=== PATIENT | female | born 1985 | race Caucasian/White ===

== ENCOUNTER 2020-12-05 07:14 | Outpatient (CLI) | payer OTHER, SELFPAY ==
[2020-12-05 08:01] LABS: Basophils Absolute Auto 0.1 K/mm3 (0.0-0.1); Basophils Percent Auto 0.5 % (0.2-1.2); Eosinophils Absolute Auto 0.2 K/mm3 (0-0.3); Eosinophils Percent Auto 1.5 % (0-4.4); Hematocrit 38.5 % (37.0-47.0); Hemoglobin 13.1 g/dL (12.0-15.0); Immature Granulocyte Absolute 0.06 K/mm3 (0.00-0.031); Immature Granulocyte Percent A 0.6 % (0-0.5); Lymphocytes Absolute Auto 2.73 K/mm3 (0.9-3.2); Lymphocytes Percent Auto 25.8 % (18.3-44.2); Mean Corpuscular Hemoglobin 29.3 pg (26-34); Mean Corpuscular Volume 86.1 fl (80-100); Mean Platelet Volume 11.1 fl (7.4-10.4); Monocytes Absolute Auto 0.6 K/mm3 (0.1-0.6); Monocytes Percent Auto 5.8 % (2.6-8.5); Neutrophils Percent Auto 65.8 % (45.5-73.1); Platelet Count Result 339 k/mm3 (150-375); Red Blood Count 4.47 M/mm3 (4.2-5.4); Red Cell Distribution Width 13.2 % (11.5-14.5); White Blood Count 10.6 K/mm3 (4.5-10.0)
[2020-12-05 08:31] LABS: Alanine Aminotransferase 11 U/L (4-35); Alkaline Phosphatase 89 U/L (38-126); Anion Gap 8 mmol/L (8-16); Aspartate Amino Transferase 20 U/L (14-36); Bilirubin,Total 0.3 mg/dL (0.2-1.3); Blood Urea Nitrogen 10 mg/dL (7-17); Calcium 8.7 mg/dL (8.4-10.2); Carbon Dioxide 25 mmol/L (22-30); Chloride 106 mmol/L (98-107); Cholesterol 157 mg/dL (0-200); Estimated Glomerular Filt Rate > 60; Glucose 89 mg/dL (65-105); HDL Direct 45 mg/dL; Potassium 3.9 mmol/L (3.4-5.0); Sodium 139 mmol/L (137-145); Triglycerides 77 mg/dL (<150)
[2020-12-05 08:41] LABS: LDL Cholesterol Direct 98 mg/dL
== END 2020-12-05 07:15 | disposition home or self-care (01) ==
PROVIDERS: PCP Family Medicine; Visit Provider Family Medicine
DX: F41.1 Generalized anxiety disorder (principal); I10 Essential (primary) hypertension; Z79.899 Other long term (current) drug therapy; R60.9 Edema, unspecified
CPT/HCPCS: 36415; 80053; 80061; 84439; 84443; 85025

== ENCOUNTER 2021-09-23 10:00 | Emergency (ER) | payer OTHER, SELFPAY ==
[2021-09-23 10:13] VITALS: BP 143/79; PULSE 94; RESP 18; TEMP 36.6; O2SAT 100
--- NOTE | 2021-09-23 10:20 | ED.EAR ---
HPI - Ear Problem General Chief complaint: Ear Stated complaint: not feeling well Time Seen by Provider: 09/23/21 10:15 Source: patient Limitations: no limitations History of Present Illness HPI Narrative: Luana Estrada is a 36 yo female with a PMH of hypertension who comes with complaints of right ear pain and eustachian tube discomfort with swallowing. 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 EYES: Denies visual changes, redness, discharge. ENT: Denies rhinorrhea, congestion, sore throat, right otalgia. CARDIOVASCULAR: Denies chest pain, palpitations, edema. RESPIRATORY: Denies dyspnea, wheezing, cough GASTROINTESTINAL: Denies abdominal pain, nausea, vomiting, diarrhea. GENITOURINARY: Denies dysuria, hematuria, abnormal discharge SKIN: Denies rash or itching. NEUROLOGIC: Denies numbness, or focal weakness. PSYCHIATRIC: Denies anxiety or depression. PMFSH Past Medical History Medical History Benign essential HTN Family History Family History Father Hypertension Family history of cardiovascular disease Family history of chronic obstructive pulmonary disease Family history of coronary artery disease Mother Hypertension Grandparent Family history of malignant neoplasm Carcinoma of colon Family history of lung cancer Social History Social History Smoking status: Never smoker Alcohol intake: never Comments At time of signature, I agree with nursing past medical, surgical, social and family history. There is no relevant family history pertinent to the presenting complaint. Exam Narrative: GENERAL: This is a well-nourished, well-developed patient, in mild distress. HEAD: normocephalic, atraumatic. EYES: Sclera clear/white. Vision is grossly intact. EARS: External ears normal, auditory canals clear on left and fluid behind TM on right . Hearing grossly intact. NOSE: External nose normal without nasal discharge, nares without redness, no rhinorrhea. THROAT: Mucous membranes moist, posterior pharynx mild erythema more on the right than the left and has slight cough NECK: Neck supple, non-tender CARDIOVASCULAR: Regular rate and rhythm without murmurs, gallops, or rubs. RESPIRATORY: Clear to auscultation. Breath sounds equal bilaterally. No wheezes, rales, or rhonchi. GASTROINTESTINAL: Not performed SKIN: warm, intact with no suspicious lesions or rash, good texture and turgor. NEURO: awake, alert, and oriented to person, place and time. There were no obvious focal neurologic abnormalities. Steady gait EXTREMITIES: Normal range of motion. BACK: Nontender without deformity Course Course Emergency Course: Patient here for right ear discomfort that is been going on for most of the last 2 weeks Started on polymyxin eardrops Continue Claritin Level of Care: Express Care Visit Vital Signs Vital signs: Vital Signs Temperature 97.8 F 09/23/21 10:13 Pulse Rate 94 09/23/21 10:13 Respiratory Rate 18 09/23/21 10:13 Blood Pressure 143/79 H 09/23/21 10:13 Pulse Oximetry 100 09/23/21 10:13 Temperature 97.8 F 09/23/21 10:13 Pulse Rate 94 09/23/21 10:13 Respiratory Rate 18 09/23/21 10:13 Blood Pressure 143/79 H 09/23/21 10:13 Pulse Oximetry 100 09/23/21 10:13
== END 2021-09-23 10:36 | disposition home or self-care (01) ==
PROVIDERS: Emergency Provider Nurse Practitioner; PCP Family Medicine
DX: H66.91 Otitis media, unspecified, right ear (principal); I10 Essential (primary) hypertension
CPT/HCPCS: 99213; G0463

== ENCOUNTER 2021-11-16 14:31 | Outpatient (CLI) | payer OTHER, SELFPAY ==
[2021-11-16 15:18] LABS: Hemoglobin 12.8 g/dL (12.0-15.0); Mean Corpuscular HGB Conc 32.8 g/dl (32-36); Mean Corpuscular Hemoglobin 28.4 pg (26-34); Mean Corpuscular Volume 86.5 fl (80-100); Platelet Count Result 337 k/mm3 (150-375); Red Blood Count 4.51 M/mm3 (4.2-5.4); Red Cell Distribution Width 14.1 % (11.5-14.5)
== END 2021-11-16 14:32 | disposition home or self-care (01) ==
LOC: ANHOBOP 14:34
PROVIDERS: PCP Family Medicine; Visit Provider Otolaryngology
DX: D64.9 Anemia, unspecified (principal); H93.A1 Pulsatile tinnitus, right ear; E05.90 Thyrotoxicosis, unspecified without thyrotoxic crisis or storm
CPT/HCPCS: 36415; 84443; 85027

== ENCOUNTER 2021-11-17 13:48 | Outpatient (CLI) | payer OTHER, SELFPAY ==
--- NOTE | ~2021-11-17 | CT_ITS ---
EXAMINATION: CTA brain EXAM DATE: 11/17/2021 14:30 INDICATION: H93.A1 - Pulsatile tinnitus, right ear. TECHNIQUE: Noncontrast head CT. Spiral CT angiogram cerebral arteries performed with intravenous in jection of 100 mL Omnipaque 350. Axial, coronal and sagittal images reviewed. Additional reformatted images created on dedicated 3-D workstation. The dose-length product (DLP) for this examination was 1024.46 mGy-cm. The exposure was tailored according to patient size, and iterative reconstruction (ASIR) was used as additional dose reduction technique. There is no prior study for comparison. FINDINGS: No carotid arteriosclerosis or stenosis. There is no distal carotid or vertebral basilar arterial dissection or fibromuscular dysplasia. There are no cerebral artery aneurysms. There is symm etric cerebral artery arborization. The sagittal, transverse and sigmoid sinuses enhance normally, no venous sinus thrombosis. Internal cerebral veins also enhance normally. Symmetric petrous portions of the internal carotid arteries with thin but likely intact browne along t he middle ears. Symmetric appearing internal auditory canals. Middle ears and mastoid air cells appea r well aerated. There is no acute intraparenchymal hemorrhage. No evidence of intraparenchymal brain mass lesion. N o evidence of acute infarction. There is no mass effect or midline shift. There is no obstructive hyd rocephalus suspected. There are no extra-axial collections. IMPRESSION: Unremarkable CTA brain examination. Reviewed, dictated and finalized at location A. [employer]
[2021-11-17 14:22] LABS: Estimated Glomerular Filt Rate > 60
== END 2021-11-17 13:49 | disposition home or self-care (01) ==
LOC: ANHIMG 13:50
PROVIDERS: PCP Family Medicine; Visit Provider Otolaryngology
DX: H93.A1 Pulsatile tinnitus, right ear (principal)
CPT/HCPCS: 70496; Q9967

== ENCOUNTER 2022-02-04 10:00 | Emergency (ER) | payer OTHER, SELFPAY ==
--- NOTE | 2022-02-04 10:09 | ED.URI ---
HPI - URI/Sore Throat General Chief Complaint: Upper Respiratory Infection Stated Complaint: cough,chest congestion,nasal drainage Time Seen by Provider: 02/04/22 10:09 Source: patient Mode of arrival: ambulatory Limitations: no limitations History of Present Illness HPI Narrative: Ms. Estrada is a 36-year-old female patient presenting to the clinic today with complaints of cough, chest congestion, and runny nose and 5 days. She reports her has also been sick but he has improved. She reports that the congestion is in to her upper chest and she feels like she is having a drip with some foul tasting drainage. Reports that when she does cough it is productive at times with some yellow phlegm. No history of COPD or asthma. No history of any known exposure to anybody with COVID, flu, or strep. 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 She has been taking Claritin-D and Delsym for the cough. MD elicited complaint: cough, rhinorrhea and nasal congestion Related Data Home Medications Medication Instructions Recorded Confirmed norethindrone acetate 1 mg-ethinyl 1 tablet DAILY 09/23/21 02/04/22 estradiol 20 mcg tablet (Microgestin) omeprazole 20 mg capsule,delayed 20 mg PO DAILY 02/04/22 02/04/22 release Allergies Allergy/AdvReac Type Severity Reaction Status Date / Time No Known Allergies Allergy Unknown Verified 02/04/22 10:16 Review of Systems Review of Systems: Pertinent positives per HPI. Patient denies any rash, headache, visual changes, dizziness, sore throat,shortness of breath, chest pain, palpitations, nausea, vomiting, diarrhea, constipation, abdominal pain, or any urinary issues. [facility] Past Medical History Medical History Benign essential HTN Family History Family History Father Hypertension Family history of cardiovascular disease Family history of chronic obstructive pulmonary disease Family history of coronary artery disease Mother Hypertension Grandparent Family history of malignant neoplasm Carcinoma of colon Family history of lung cancer Social History Social History Smoking status: Never smoker Alcohol intake: never Comments At the time of my signature, I reviewed and agree with the nursing past medical, surgical, social, and family history. There is no relevant family history pertinent to the patient complaint. Exam Narrative: General: Well-developed, obese, in no apparent distress Head: Normocephalic, atraumatic Eyes: Pupils equally round and reactive to light bilaterally, EOM intact, sclera and conjunctive clear, no discharge, lids normal Ears: TMs intact and clear, ear canals clear, no drainage, grossly hearing normal. Nose: Nares patent, no discharge, no inflammation, no sinus tenderness. Mouth: Oral pharynx without lesions or masses, good dentition, MMM. Postnasal drip Neck: Supple, trachea midline, no enlargement of anterior or posterior cervical nodes, no thyroid masses or goiter palpable. Cardio: Regular rate and rhythm, s1 and s2 normal, no murmur appreciated. Resp: Clear to auscultation bilaterally, no rhonchi, rales, wheezing or rubs Course Course Emergency Course: Portions of this record may have been created with voice recognition software. Level of Care: Express Care Visit Vital Signs Vital signs: Vital Signs Temperature 36.8 C 02/04/22 10:11 Pulse Rate 96 02/04/22 10:11 Respiratory Rate 18 02/04/22 10:11 Blood Pressure 141/100 H 02/04/22 10:11 Pulse Oximetry 100 02/04/22 10:11 Oxygen Delivery Room Air 02/04/22 10:11 Temperature 36.8 C 02/04/22 10:11 Pulse Rate 96 02/04/22 10:11 Respiratory Rate 18 02/04/22 10:11 Blood Pressure 141/100 H 02/04/22 10:11 Pulse
[2022-02-04 10:11] VITALS: BP 141/100; PULSE 96; RESP 18; TEMP 36.8; O2SAT 100
== END 2022-02-04 11:01 | disposition home or self-care (01) ==
PROVIDERS: Emergency Provider Nurse Practitioner Family; PCP Family Medicine
DX: J06.9 Acute upper respiratory infection, unspecified (principal); I10 Essential (primary) hypertension; Z86.16 Personal history of COVID-19
CPT/HCPCS: 87804; 99213; G0463

== ENCOUNTER 2022-03-30 09:10 | Outpatient (CLI) | payer OTHER, SELFPAY ==
[2022-03-30 10:16] LABS: Beta HCG Quantitative 130.66 mIU/ML
== END 2022-03-30 09:11 | disposition home or self-care (01) ==
PROVIDERS: PCP Family Medicine; Visit Provider Obstetrics & Gynecology
DX: N93.9 Abnormal uterine and vaginal bleeding, unspecified (principal)
CPT/HCPCS: 36415; 84702

== ENCOUNTER 2022-04-01 09:28 | Outpatient (CLI) | payer OTHER, SELFPAY ==
[2022-04-05 20:04] LABS: Progesterone 15.8 ng/mL (***)
== END 2022-04-01 09:29 | disposition home or self-care (01) ==
PROVIDERS: PCP Family Medicine; Visit Provider Obstetrics & Gynecology
DX: N92.6 Irregular menstruation, unspecified (principal)
CPT/HCPCS: 36415; 84144; 84702

== ENCOUNTER 2022-04-26 11:11 | Outpatient (CLI) | payer OTHER, SELFPAY ==
[2022-04-26 11:37] LABS: Hematocrit 39.3 % (37.0-47.0); Hemoglobin 13.1 g/dL (12.0-15.0); Mean Corpuscular HGB Conc 33.3 g/dl (32-36); Mean Corpuscular Hemoglobin 28.2 pg (26-34); Mean Corpuscular Volume 84.7 fl (80-100); Mean Platelet Volume 11.1 fl (7.4-10.4); Platelet Count Result 336 k/mm3 (150-375); Red Blood Count 4.64 M/mm3 (4.2-5.4); Red Cell Distribution Width 13.7 % (11.5-14.5); White Blood Count 10.5 K/mm3 (4.5-10.0)
[2022-04-26 11:51] LABS: INR 1.1; Prothrombin Time 13.3 Seconds (11.1-14.7)
[2022-04-26 11:52] LABS: Partial Thromboplastin Time 29.6 SECONDS (22.3-36.8)
[2022-04-26 12:28] LABS: Hepatitis B Surface Antigen Negative (Negative); Rubella IgG Antibody 10.9 IU/ML
[2022-04-26 12:34] LABS: HIV 1/2 Ab P24 Ag Result Negative (Negative)
[2022-04-27 09:07] LABS: Rapid Plasma Reagin Non-Reactive (NonReactive)
== END 2022-04-26 11:12 | disposition home or self-care (01) ==
LOC: ANHLAB 11:12
PROVIDERS: Visit Provider Obstetrics & Gynecology
DX: Z34.90 Encounter for supervision of normal pregnancy, unspecified, unspecified trimester (principal); Z3A.00 Weeks of gestation of pregnancy not specified
CPT/HCPCS: 36415; 85027; 85610; 85730; 86592; 86703; 86762; 86850; 86900; 86901; 87340; G0432

== ENCOUNTER 2022-05-18 12:33 | Outpatient (CLI) | payer OTHER, SELFPAY ==
[2022-05-18 13:42] LABS: Hematocrit 35.5 % (37.0-47.0); Hemoglobin 11.9 g/dL (12.0-15.0); Mean Corpuscular HGB Conc 33.5 g/dl (32-36); Mean Corpuscular Hemoglobin 28.5 pg (26-34); Mean Corpuscular Volume 85.1 fl (80-100); Mean Platelet Volume 11.4 fl (7.4-10.4); Platelet Count Result 288 k/mm3 (150-375); Red Blood Count 4.17 M/mm3 (4.2-5.4); Red Cell Distribution Width 14.1 % (11.5-14.5); White Blood Count 12.4 K/mm3 (4.5-10.0)
== END 2022-05-18 12:34 | disposition home or self-care (01) ==
LOC: ANHOBOP 12:35
PROVIDERS: Visit Provider Obstetrics & Gynecology
DX: O99.119 Other diseases of the blood and blood-forming organs and certain disorders involving the immune mechanism complicating pregnancy, unspecified trimester (principal); D68.59 Other primary thrombophilia; Z3A.00 Weeks of gestation of pregnancy not specified
CPT/HCPCS: 36415; 85027

== ENCOUNTER 2022-06-24 09:39 | Outpatient (CLI) | payer OTHER, SELFPAY ==
--- NOTE | ~2022-06-24 | US_ITS ---
EXAMINATION: US venous doppler [facility] DATE: 06/24/2022 10:16 INDICATION: Left lower limb pain TECHNIQUE: Grayscale ultrasound images without and with compression and Doppler ultrasound images of the bilateral lower extremity veins were obtained. COMPARISON: None. FINDINGS: The visualized portions of right common femoral vein, profunda (deep) femoral vein, femoral vein, pop liteal vein, posterior tibial veins, peroneal veins, gastrocnemius vein and greater saphenous vein ou tflow are patent. The visualized portions of left common femoral vein, profunda femoral vein, femoral vein, popliteal v ein, posterior tibial veins, peroneal veins, gastrocnemius vein and greater saphenous vein outflow ar e patent. IMPRESSION: 1. No deep venous thrombosis in either lower limb. Reviewed, dictated and finalized at location B.
== END 2022-06-24 09:40 | disposition home or self-care (01) ==
PROVIDERS: Visit Provider Obstetrics & Gynecology
DX: M79.669 Pain in unspecified lower leg (principal); Z33.1 Pregnant state, incidental
CPT/HCPCS: 93970

== ENCOUNTER 2022-09-15 11:04 | Outpatient (CLI) | payer OTHER, SELFPAY ==
[2022-09-15 12:05] LABS: Hematocrit 31.9 % (37.0-47.0); Hemoglobin 10.9 g/dL (12.0-15.0)
[2022-09-15 12:19] LABS: Glucose 1 Hour PP 50gm Dose 135 mg/dL
[2022-09-15 12:58] LABS: HIV 1/2 Ab P24 Ag Result Negative (Negative)
== END 2022-09-15 11:05 | disposition home or self-care (01) ==
LOC: ANHOBOP 11:06
PROVIDERS: Visit Provider Obstetrics & Gynecology
DX: Z34.90 Encounter for supervision of normal pregnancy, unspecified, unspecified trimester (principal); Z3A.00 Weeks of gestation of pregnancy not specified
CPT/HCPCS: 36415; 82947; 85014; 85018; 86703; G0432

== ENCOUNTER 2022-09-17 06:11 | Outpatient (CLI) | payer OTHER, SELFPAY ==
[2022-09-17 06:46] LABS: Glucose Fasting 89 mg/dL
[2022-09-17 08:00] LABS: Glucose 1 Hour 130 mg/dL
[2022-09-17 08:53] LABS: Glucose 2 Hour 116 mg/dL
[2022-09-17 09:53] LABS: Glucose 3 Hour 57 mg/dL
== END 2022-09-17 06:12 | disposition home or self-care (01) ==
LOC: ANHOBOP 06:12
PROVIDERS: Visit Provider Obstetrics & Gynecology
DX: Z34.90 Encounter for supervision of normal pregnancy, unspecified, unspecified trimester (principal); Z3A.00 Weeks of gestation of pregnancy not specified
CPT/HCPCS: 36415; 82951; 82952

== ENCOUNTER 2022-10-20 10:22 | Observation (INO) | payer OTHER, SELFPAY ==
[2022-10-20 11:36] VITALS: BP 120/85; PULSE 91
[2022-10-20] MEDS: NIFEdipine 10 MG CAPSULE PO (11:36)
[2022-10-20 11:45] VITALS: BMI 36.4
[2022-10-20 12:45] VITALS: BP 133/84; PULSE 112
--- NOTE | 2022-10-28 12:48 | PM.OBTRLD ---
OB - Triage/Final Diagnosis Visit Information Comments/Additional reasons for admission: I have assessed the risk for this patient, Luana Estrada, and determined that she would benefit from observation care. Final Diagnosis (1) contractions: Code(s): O47.00 - False labor before 37 completed weeks of gestation, unspecified trimester Status: Acute
== END 2022-10-20 13:25 | disposition home or self-care (01) ==
PROVIDERS: Admitting Provider Obstetrics & Gynecology; Visit Provider Obstetrics & Gynecology
DX: O47.03 False labor before 37 completed weeks of gestation, third trimester (principal); Z3A.32 32 weeks gestation of pregnancy
CPT/HCPCS: A9270; G0378; G0379

== ENCOUNTER 2022-11-08 15:55 | Outpatient (RCR) | payer OTHER, SELFPAY ==
[2022-10-13 09:18] VITALS: BP 134/78; PULSE 120
[2022-10-26 16:50] VITALS: BP 128/82; PULSE 113
[2022-11-01 16:25] VITALS: BP 126/76; PULSE 118
[2022-11-08 16:34] VITALS: BP 132/85; PULSE 118
== END 2022-11-26 19:54 | disposition home or self-care (01) ==
LOC: ANHOBOP 15:55
PROVIDERS: Visit Provider Obstetrics & Gynecology
DX: O09.893 Supervision of other high risk pregnancies, third trimester (principal); Z86.718 Personal history of other venous thrombosis and embolism; Z3A.31 31 weeks gestation of pregnancy; Z3A.33 33 weeks gestation of pregnancy; Z3A.34 34 weeks gestation of pregnancy; Z3A.35 35 weeks gestation of pregnancy
CPT/HCPCS: 59025

== ENCOUNTER 2022-11-14 21:32 | Observation (INO) | payer OTHER, SELFPAY ==
[2022-11-14] VITALS (8 sets, daily range): BP systolic 122–139; BP diastolic 71–99; PULSE 91–136; TEMP 36.8; BMI 36.8
--- NOTE | 2022-11-14 21:32 | PC.NURSE ---
Pt arrives to unit with c/o nausea and vomiting with diarrhea since 0500, states she had a 100.5 F temperature at home but is feeling clammy now and started feeling cramping about an hour ago. Pt denies any vaginal bleeding or leaking of fluid. Pt to change in to gown and provide urine sample.
--- NOTE | 2022-11-14 21:38 | PC.NURSE ---
Dr Vidal on phone at this time and informed that patient is here, pt had already spoken with MD. Orders to administer D5LR 1L bolus, zofran 4mg IV, run a UA, and perform SVE if pt is nadine and requests one.
[2022-11-14] MEDS: DEXTROSE 5%/LACTATED RINGERS 1,000 ML 999 ML IV CONT (22:00)
[2022-11-14] MEDS: ONDANSETRON INJ 4 MG/2 ML VIAL IV PUSH (22:08)
[2022-11-14 22:33] LABS: Appearance Urine Clear (Clear); Bilirubin Urine 1+ (Negative); Blood Urine Negative (Negative); Color Urine Yellow (Yellow); Glucose Urine UA Negative (Negative); Ketones Urine 1+ mg/dL (Negative); Leukocyte Esterase Ur 1+ LEU/UL (Negative); Nitrate Urine Negative (Negative); Protein Urine 1+ mg/dL (Negative); Specific Grav Ur >= 1.030 (1.001-1.035); Urobilinogen Urine 0.2 mg/dL (<2.0); pH Urine 5.5 (5.0-9.0)
[2022-11-14 22:47] LABS: Bacteria Urine Trace /hpf; Mucus Urine Moderate /lpf; Squamous Epithelial Cell Urine Many /hpf (Few)
[2022-11-14 22:53] LABS: Add Urine Microscopic? YES
--- NOTE | 2022-11-14 23:00 | PC.NURSE ---
Geronimo james brought to patient
--- NOTE | 2022-11-14 23:23 | PC.NURSE ---
Dr Vidal called via marine underwriter and informed of patient stating that she is feeling better, has been able to keep down luisa crackers and states she would like to go home and get some sleep. FHTs starting tachy and return to normal baseline relayed to MD along with pt not feeling contractions and pts BP results and UA results. Orders received from MD to discharge patient to home.
--- NOTE | 2022-11-14 23:25 | OBADM ---
This patient, Luana Estrada, admitted to the OB room OB Post 113 for observation. Patient/family oriented to hospital policies and general routines including ID bracelet, bed and alarms, visiting hours, pain management, procedures, bathroom and other care routines, personal items, smoking policy, room service/diet, and visiting hours. Patient/Family are encouraged to report perceived risks to care and to ask questions if they do not understand what they are told or what they should do.
--- NOTE | 2022-11-30 21:21 | PM.OBTRLD ---
OB - Triage/Final Diagnosis Visit Information Comments/Additional reasons for admission: I have assessed the risk for this patient, Luana Estrada, and determined that she would benefit from observation care. Evaluation Laboratory results: Laboratory Tests 11/14/22 22:11 Urine Color Yellow Urine Appearance Clear Urine pH 5.5 Ur Specific Rebuck >= 1.030 Urine Protein 1+ H Urine Glucose (UA) Negative Urine Ketones 1+ H Ur Blood (Man) Negative Urine Nitrate Negative Urine Bilirubin 1+ H Urine Urobilinogen 0.2 Leukocyte Esterase Rfl 1+ H Urine RBC 3-5 H Urine WBC 7-9 H Ur Squamous Epith Cells Many H Urine Bacteria Trace Urine Mucus Moderate H Final Diagnosis (1) Nausea and vomiting during : Code(s): O21.9 - Vomiting of , unspecified Status: Acute (2) Diarrhea: Code(s): R19.7 - Diarrhea, unspecified Status: Acute
== END 2022-11-14 23:37 | disposition home or self-care (01) ==
PROVIDERS: Admitting Provider Obstetrics & Gynecology; Visit Provider Obstetrics & Gynecology
DX: O21.9 Vomiting of pregnancy, unspecified (principal); O26.893 Other specified pregnancy related conditions, third trimester; R19.7 Diarrhea, unspecified; R10.9 Unspecified abdominal pain; Z3A.36 36 weeks gestation of pregnancy
CPT/HCPCS: 81001; 87086; 96374; G0378; G0379; J2405; J7121

== ENCOUNTER 2022-11-16 13:54 | Outpatient (CLI) | payer OTHER, SELFPAY ==
[2022-11-16 14:32] LABS: Basophils Percent Auto 0.2 % (0.2-1.2); Eosinophils Absolute Auto 0.3 K/mm3 (0-0.3); Eosinophils Percent Auto 2.3 % (0-4.4); Hematocrit 32.3 % (37.0-47.0); Hemoglobin 10.7 g/dL (12.0-15.0); Immature Granulocyte Absolute 0.12 K/mm3 (0.00-0.031); Immature Granulocyte Percent A 0.9 % (0-0.5); Lymphocytes Absolute Auto 2.14 K/mm3 (0.9-3.2); Lymphocytes Percent Auto 16.7 % (18.3-44.2); Mean Corpuscular HGB Conc 33.1 g/dl (32-36); Mean Corpuscular Hemoglobin 26.9 pg (26-34); Mean Corpuscular Volume 81.2 fl (80-100); Mean Platelet Volume 10.7 fl (7.4-10.4); Monocytes Absolute Auto 0.7 K/mm3 (0.1-0.6); Monocytes Percent Auto 5.7 % (2.6-8.5); Neutrophils Absolute Auto 9.5 K/mm3 (1.3-6.7); Neutrophils Percent Auto 74.2 % (45.5-73.1); Platelet Count Result 339 k/mm3 (150-375); Red Blood Count 3.98 M/mm3 (4.2-5.4); Red Cell Distribution Width 13.6 % (11.5-14.5); White Blood Count 12.8 K/mm3 (4.5-10.0)
[2022-11-17 08:01] LABS: Rapid Plasma Reagin Non-Reactive (NonReactive)
== END 2022-11-16 13:55 | disposition home or self-care (01) ==
LOC: ANHOBOP 14:07
PROVIDERS: Visit Provider Obstetrics & Gynecology
DX: Z34.93 Encounter for supervision of normal pregnancy, unspecified, third trimester (principal); Z3A.00 Weeks of gestation of pregnancy not specified
CPT/HCPCS: 36415; 85025; 86592; 86850; 86900; 86901

== ENCOUNTER 2022-11-18 10:03 | Inpatient (IN) | payer OTHER, SELFPAY ==
[2022-11-18] VITALS (34 sets, daily range): BP systolic 128–144; BP diastolic 74–100; PULSE 75–119; RESP 18; TEMP 35.4–36.7; O2SAT 94–100; BMI 36.8
--- NOTE | 2022-11-18 10:21 | LDADM ---
This patient, Luana Estrada, was admitted to Labor/Delivery/Recovery 119 on 11/18/22 at 10:03. Plans for labor, pain management and were discussed with patient. Patient/family oriented to hospital policies and general routines including ID bracelet, bed and alarms, visiting hours, pain management, procedures, bathroom and other care routines, personal items, smoking policy, room service/diet and guest tray routines, infant security routines, and visiting hours. Patient/Family are encouraged to report perceived risks to care and to ask questions if they do not understand what they are told or what they should do. See OBIX for further documentation.
--- NOTE | 2022-11-18 10:43 | WPDANESEPPF ---
Anes - Initial Pre Proc Eval Procedure: Operation Date: 11/18/22 12:00 Proposed Procedures p Repeat Section with Tubal Ligation - Cliff Vidal MD Date/Time: 11/18/22 10:43 Surgeon: Cliff Vidal MD Pre Op Diagnosis: Repeat C Section, Desires Sterilization Patient Data Age: 37 Gender: F Height: 1.68 m Weight: 103.5 kg Allergies Allergy/AdvReac Type Severity Reaction Status Date / Time No Known Allergies Allergy Unknown Verified 11/01/22 13:03 Home Medications Medication Instructions Recorded Confirmed Type omeprazole 20 mg capsule,delayed 20 mg PO DAILY 02/04/22 10/20/22 History release aspirin 81 mg capsule 81 mg PO HS 10/13/22 10/20/22 History enoxaparin 40 mg/0.4 mL 40 mg subcut HS 10/13/22 10/20/22 History subcutaneous syringe nifedipine 30 mg tablet,extended 30 mg PO HS 10/13/22 10/20/22 History release 24 hr vit no.95-ferrous 1 tablet PO HS 10/13/22 10/20/22 History fumarate 28 mg-folic acid 800 mcg tablet () fluoxetine 20 mg capsule 20 mg PO DAILY 11/01/22 11/01/22 History Patient hx anesthesia problems: none Family hx anesthesia problems: none Results Review: All pre-operative results and documents have been reviewed as part of the pre-operative evaluation. [facility] Past Medical History Medical History Benign essential HTN DVT (deep venous thrombosis) Generalized anxiety disorder Family History Family History Father Hypertension Family history of cardiovascular disease Family history of chronic obstructive pulmonary disease Family history of coronary artery disease Mother Hypertension Grandparent Family history of malignant neoplasm Carcinoma of colon Family history of lung cancer Social History Social History Smoking status: Never smoker Alcohol intake: never Substance use: never Lack of Transportation: No Lack of Food: Never True Current Housing: I Have Housing Concerned About Future Housing: No Difficulty Paying Gas/Electric Bills: No Difficulty Paying for Meds: No Currently Unemployed: No Education: Associate Degree Difficulty w/ Childcare or Family Care: No Spiritual care concerns: No Anes - Eval Final PreProcedure Day of Procedure 11/18/22 10:43 Patient weight: overweight Heart: regular rate and rhythm Lungs: clear to auscultation Airway: Mallampati scale class 1 Neurological: alert and oriented Last oral intake: >/= 8 hours ASA classification: III Emergent: no Anesthetic plan: proceed Anesthesia type and monitoring: regional spinal and standard monitoring Results Review: All pre-operative results and documents have been reviewed as part of the pre-operative evaluation. Informed Consent: The patient's anesthetic plan and its attendant risks and benefits were discussed with the patient/family/POA. Questions were solicited and answers provided to the satisfaction of the patient/family/POA.
[2022-11-18] MEDS: LACTATED RINGERS 1,000 ML 125 ML IV CONT ×2 (11:05→11:28)
--- NOTE | 2022-11-18 11:18 | PM.IMHP ---
H&P: HPI History of Present Illness Date/Time: 11/18/22 11:18 Chief Complaint: Here for C section Narrative: 37 y/o at 37 weeks gestation. She has chronic hypertension with blood pressures that have become more difficult to control. She has a history of preeclampsia in a previous . She has no headaches, no epigastric or RUQ pain, and no visual field change. She has a history of DVT and has been on Lovenox - last dose was 3 days ago. She has anxiety that is stable on fluoxetine 20 mg daily. She takes Prilosec for GERD. She takes Procardia XL 30 mg daily. She has a history of prior , desiring repeat. She also would like pernanent contraception with tubal ligation. GBS pos. Review of Systems Review of Systems: All systems reviewed & are unremarkable except as noted in HPI and below PMFSH Past Medical History Medical History (Updated 11/18/22 @ 11:24 by Cliff Vidal MD) Benign essential HTN DVT (deep venous thrombosis) Generalized anxiety disorder Surgical History Surgical History (Updated 11/18/22 @ 11:24 by Cliff Vidal MD) History of delivery Family History Family History Father Hypertension Family history of cardiovascular disease Family history of chronic obstructive pulmonary disease Family history of coronary artery disease Mother Hypertension Grandparent Family history of malignant neoplasm Carcinoma of colon Family history of lung cancer Social History Social History Smoking status: Never smoker Alcohol intake: never Substance use: never Lack of Transportation: No Lack of Food: Never True Current Housing: I Have Housing Concerned About Future Housing: No Difficulty Paying Gas/Electric Bills: No Difficulty Paying for Meds: No Currently Unemployed: No Education: Associate Degree Difficulty w/ Childcare or Family Care: No Spiritual care concerns: No Meds Home Medications and Allergies Home Medications Medication Instructions Recorded Confirmed Type omeprazole 20 mg capsule,delayed 20 mg PO DAILY 02/04/22 11/18/22 History release aspirin 81 mg capsule 81 mg PO HS 10/13/22 11/18/22 History enoxaparin 40 mg/0.4 mL 40 mg subcut HS 10/13/22 11/18/22 History subcutaneous syringe nifedipine 30 mg tablet,extended 30 mg PO HS 10/13/22 11/18/22 History release 24 hr vit no.95-ferrous 1 tablet PO HS 10/13/22 11/18/22 History fumarate 28 mg-folic acid 800 mcg tablet () fluoxetine 20 mg capsule 20 mg PO DAILY 11/01/22 11/01/22 History Allergies Allergy/AdvReac Type Severity Reaction Status Date / Time No Known Allergies Allergy Unknown Verified 11/01/22 13:03 Vital Signs Vital Signs - 24 hr 11/18/22 11:07 Pulse Rate 105 H Blood Pressure 134/94 H Exam Const: Orientation/consciousness: patient oriented x3 Other: Well-developed, well-nourished female in no acute distress. Neck: Thyroid: thyroid normal Lymphatic: no lymphadenopathy noted (in neck, axilla or inguinal nodes) Resp: Effort & Inspection: normal respiratory effort Auscultation: clear to auscultation bilaterally Cardio: Rate: regular rate Rhythm: regular rhythm Heart sounds: S1 normal heart sound present and S2 normal heart sound present GI: Other: ABD: Soft, nontender, nondistended, gravid. FH 36 cm. FHR 150 bpm. No guarding or rebound tenderness. No hepatosplenomegaly. : General: Yes no CVA tenderness Other: Cervix closed, thick Back/Spine/Pelvis: Back: no CVA tenderness Skin: General skin exam: normal color and no rashes or lesions noted Neuro: General: patient oriented x3 Extrem: Other: Extremities: nontender with no edema Psych: Mental Status: mental status grossly normal Affect: normal affect Assessment and Plan Assessment and plan (1) Chronic hypertension a
--- NOTE | 2022-11-18 11:58 | WPDHPUPDATE1 ---
History and Physical Update Update Date/Time: 11/18/22 11:58 History and Physical has been reviewed, including an updated exam of the patient. There are NO changes in the patient's condition. Risks, benefits, and alternatives have been discussed and questions answered. Patient agrees to proceed with procedure.
[2022-11-18] MEDS: ceFAZolin 2 GM/D5W 50 ML 2 GM/50 ML BAG IVPB (12:02)
[2022-11-18] MEDS: KETOROLAC 30 MG/ML VIAL (*BKC) IV PUSH (12:30)
--- NOTE | 2022-11-18 13:13 | PM.OBPRVD ---
OB - Delivery Note Procedure Delivery date: 11/18/22 Procedure: Procedures Operation Date: 11/18/22 12:00 <No data on this case meets the specified criteria> Repeat low transverse delivery Bilateral tubal ligation via modified [place] technique Events: Chronic Hypertension and Positive Group B Strep (GBS) Delivery monitor: External FHT and External Uterine Route of delivery: Specimen: Yes (cord blood, segments of bilateral Fallopian tubes, placenta) Quantitative Blood Loss (ml): 370 Anesthesia type: Spinal Disposition: PACU Complications: None Narrative: The patient was taken to the operating room where she was prepared and draped in the usual sterile fashion in dorsal supine position with a leftward tilt. She received cefazolin preoperatively. Spinal anesthesia was found to be adequate. A Pfannenstiel skin incision was made along the previous scar line and was carried through to the underlying layer of the fascia. The fascia was incised in the midline and the incision was extended laterally. The fascia was dissected free of the underlying rectus muscles. The rectus muscles were in the midline. The peritoneum was identified, tented up and entered sharply. The peritoneal incision was extended superiorly and inferiorly with good visualization of the bladder. The bladder blade was placed. The vesicouterine peritoneum was identified, tented up and entered sharply. The incision was extended laterally and the bladder flap was developed. The bladder blade was replaced. The uterus was then incised sharply in a transverse fashion along the lower uterine segment. The incision was extended laterally. The 's head was delivered atraumatically to the sterile field, followed by the body. The nose and mouth were bulb suctioned. After a delay, the cord was clamped and cut. The was handed off the field. Cord blood was collected. The placenta was removed manually and was passed off the field. The uterus was exteriorized and cleared of all clots and debris. The uterine incision was reapproximated using 0 Monocryl in a running, locked fashion. A second, imbricating layer of the same suture was run. Excellent hemostasis resulted as did excellent reapproximation of the normal anatomy. The left fallopian tube was then identified by following it out to the fimbriated end. It was grasped in the midportion with a Ovidio clamp and a loop of tube was ligated with a free tie of 0 plain gut. The tubal segment was then transected and the specimen was passed off to be sent to pathology. Hemostasis was excellent. Attention was turned to the right fallopian tube which was similarly identified, ligated and transected. Once again, excellent hemostasis resulted. The uterus was returned the abdomen. The pelvis was irrigated copiously with warmed normal saline. The bladder flap was treated with Hemaderm. Rigorous hemostasis was assured. The fascial layer was reapproximated using 0 Vicryl in a running fashion. The skin was closed with a running, subcuticular stitch of 4 0 Vicryl. Dermaflex was applied externally. Sponge, lap, needle and instrument counts were correct. The patient was taken to the recovery room in stable condition. The infant went to the nursery in stable condition. I was present and scrubbed the entire procedure. Baby Date of : 11/18/22 Time of : 12:27 Weeks of gestation at delivery: 37 gender: Female Weight (pounds): 5 Weight (ounces): 13 presentation: vertex Placenta delivery description: Manual Removal and Normal Configuration Cord Vessel Description: 3 Vessels, Nuchal Cord and Delayed Cord Clamping score one minute: 9 score five minutes: 9
--- NOTE | 2022-11-18 13:19 | PM.OBDSVD ---
DS: Admitting Diagnosis Discharge Date 11/20/22 Admitting Diagnosis IUP at 37 weeks Chronic hypertension Thrombophilia Prior Desired sterility GBS colonization DS: Discharge Diagnosis Discharge Diagnosis (1) GBS (group B Streptococcus carrier), +RV culture, currently : Code(s): O99.820 - Streptococcus B carrier state complicating Status: Acute (2) Unwanted fertility: Code(s): Z30.09 - Encounter for other general counseling and advice on contraception Status: Acute (3) History of delivery: Code(s): Z98.891 - History of uterine scar from previous surgery Status: Acute (4) Chronic hypertension affecting : Code(s): O10.919 - Unspecified pre-existing hypertension complicating , unspecified trimester Status: Acute OB - DS: Summary OB Procedures : None OB Procedures Intrapartum: , Tubal ligation and GBS prophylaxis OB Procedures: : None Peripartum Data Procedures: Procedures Operation Date: 11/18/22 12:00 <No data on this case meets the specified criteria> Repeat LTCS with BTL Time Spent with Patient Time attestation: Total time spent providing and/or coordinating discharge services: DS: Data Data Completed and Pending Pending studies at discharge: Pending at discharge 11/18/22 12:43 Surgical [PTH] Routine Discharge Plan Discharge Attending physician on discharge: Cliff Vidal Consulting providers: Tarun Guadarrama ; Jenae Costa ; Filiberto Saab Discharging Clinician: Cliff Vidal Patient Disposition: Home, Self-Care Activity: may shower, may drive after 2 weeks and pelvic rest Diet: regular Discharge Instructions: Call or return if temperature above 100.4? F, increased abdominal pain, increased vaginal bleeding or any new problems. Education: Mom and Baby Guide Given to: Mother Follow-Up: Call your delivering provider's office for an appointment to be seen in: 4 Weeks Mom and baby should come to the [facility] for the follow-up appointment. Appointment Date/Time: November 22, 2022 at 1:30 pm What to expect at your follow-up visit: Blood Pressure Check & Physical Assessment Call [phone] if you are unable to keep your appointment time. BREAST CARE: * Wear a snug supportive bra. * For engorgement discomfort: Breast Feeding: * Apply warm moist washcloths * Express milk as needed to relieve engorgement * Wear loose clothing * For sore nipples: * Identify correct latch-on * Apply warm moist washcloths before and after nursing * Air dry nipples after nursing * May apply Lansinoh cream to nipples ABDOMINAL INCISION: * Allow incision to air dry * Do NOT use lotions for powders on your incision * When showering, allow soap and water to run over the incision, but do not wash incision PERINEAL CARE: * Until bleeding stops, use your kelli bottle after urinating * Change your pad frequently throughout the day * You may take sitz baths several times a day (fill your bathtub with warm water and soak for 20 minutes.) Do NOT bathe in the water * No tub baths until seen by your physician - You may shower ACTIVITY: * Rest as much as possible. * Do not exercise or lift anything heavier than your baby (such as laundry or other children.) * Avoid stairs or driving as much as possible. * Do not put anything into the vagina. No douching, tampons, or sexual activity until seen by physician. NOTIFY PHYSICIAN IF YOU HAVE ANY QUESTIONS OR IF ANY OF THE FOLLOWING SYMPTOMS OCCUR: * If your incision becomes red, swollen, or more painful than what you have experienced in the hospital. * If your vaginal bleeding becomes foul smelling. * If your vaginal bleeding becomes more heavy than a period or if your bleeding changes from pink to bright
[2022-11-18] MEDS: OXYTOCIN 30 UNITS/NS 500 ML 30 UNITS/500 ML BAG 125 UNITS IV CONT (15:06)
--- NOTE | 2022-11-18 15:35 | PC.NURSE ---
Patient transferred to post room #277 via [id number]. Support person present. Oriented to unit, room, information board, rooming in, admission packet and security measures. Patient verbalizes understanding.
[2022-11-18] MEDS: PANTOPRAZOLE 40 MG TABLET PO (18:48)
[2022-11-18] MEDS: DOCUSATE SODIUM 100 MG CAPSULE PO (18:49)
[2022-11-18] MEDS: DEXTROSE 5%/0.45% SOD CHL 1,000 ML 125 ML IV CONT (20:00)
[2022-11-18] MEDS: ENOXAPARIN 40 MG/0.4 ML SYRINGE SUB-Q (22:51)
[2022-11-18] MEDS: FLUoxetine HCL 20 MG CAPSULE PO (22:51)
[2022-11-18] MEDS: NIFEdipine 30 MG TAB.ER.24 PO (22:51)
[2022-11-19 04:19] VITALS: BP 140/89; PULSE 98; RESP 18; TEMP 36.6; O2SAT 100
[2022-11-19] MEDS: IBUPROFEN 600 MG TABLET PO ×4 (04:36→23:15)
[2022-11-19 05:09] LABS: Basophils Absolute Auto 0.1 K/mm3 (0.0-0.1); Basophils Percent Auto 0.4 % (0.2-1.2); Eosinophils Absolute Auto 0.2 K/mm3 (0-0.3); Eosinophils Percent Auto 1.5 % (0-4.4); Hematocrit 28.4 % (37.0-47.0); Hemoglobin 9.3 g/dL (12.0-15.0); Immature Granulocyte Absolute 0.08 K/mm3 (0.00-0.031); Immature Granulocyte Percent A 0.6 % (0-0.5); Lymphocytes Absolute Auto 3.01 K/mm3 (0.9-3.2); Lymphocytes Percent Auto 21.3 % (18.3-44.2); Mean Corpuscular HGB Conc 32.7 g/dl (32-36); Mean Corpuscular Hemoglobin 26.7 pg (26-34); Mean Corpuscular Volume 81.6 fl (80-100); Mean Platelet Volume 11.3 fl (7.4-10.4); Monocytes Absolute Auto 0.7 K/mm3 (0.1-0.6); Neutrophils Absolute Auto 10.1 K/mm3 (1.3-6.7); Neutrophils Percent Auto 71.2 % (45.5-73.1); Platelet Count Result 286 k/mm3 (150-375); Red Blood Count 3.48 M/mm3 (4.2-5.4); White Blood Count 14.1 K/mm3 (4.5-10.0)
--- NOTE | 2022-11-19 06:56 | PM.OBPNVD ---
OB - PN: Subj Subjective Date/time seen: 11/19/22 06:56 Patient comments: no complaints and pain well controlled baby status: doing well and nursing well OB - PN: Obj Data Labs 11/19/22 02:35 Labs: Laboratory Results - last 24 hr 11/19/22 02:35 WBC 14.1 H RBC 3.48 L Hgb 9.3 L Hct 28.4 L MCV 81.6 MCH 26.7 MCHC 32.7 RDW 14.0 Plt Count 286 MPV 11.3 H Immature Gran % (Auto) 0.6 H Neut % (Auto) 71.2 Lymph % (Auto) 21.3 Alfalfa % (Auto) 5.0 Eos % (Auto) 1.5 Baso % (Auto) 0.4 Lymph # (Auto) 3.01 Alfalfa # (Auto) 0.7 H Eos # (Auto) 0.2 Baso # (Auto) 0.1 Abs Immat Gran (auto) 0.08 H Absolute Neuts (auto) 10.1 H Absolute Nucleated RBC 0.0 Nucleated RBC % 0.0 OB - PN A/P Plan day: 1 Plan: routine care Time Spent With Patient Time: Total time spent is greater than 50% in coordination of care (as documented) at patient's floor/unit and/or counseling patient: Time with patient: less than 15 minutes Exam Const: General: cooperative, healthy appearing and comfortable Orientation/consciousness: oriented to person, oriented to place and oriented to time Resp: Effort & Inspection: normal respiratory effort GI: Inspection: normal to inspection and incision (cdi)
--- NOTE | 2022-11-19 07:00 | PC.NURSE ---
PT introductions made and plan of care discussed per post op c section, pain management, breast feeding, daily care activities. PT sole recipient of such instructions and no barriers to learning identified at this time. PT received such instructions per one to one discussion, mom baby care guide and demonstrations this shift. PT verbalized understanding.
[2022-11-19] MEDS: SIMETHICONE 80 MG TAB.CHEW PO (09:46)
[2022-11-19] MEDS: MULTIVIT/MIN/PREN/FOL AC/IRON TABLET 1 TAB PO (09:46)
[2022-11-19] MEDS: PANTOPRAZOLE 40 MG TABLET PO (09:47)
[2022-11-19] MEDS: POLYSACCHARIDE IRON COMPLEX 150 MG CAPSULE PO ×2 (09:47→16:40)
[2022-11-19] MEDS: DOCUSATE SODIUM 100 MG CAPSULE PO ×2 (09:47→16:40)
[2022-11-19 09:50] VITALS: BP 128/88; PULSE 108; RESP 18; TEMP 36.6; O2SAT 98
--- NOTE | 2022-11-19 11:49 | WPDANLDPN2 ---
Anes-Prog Note L&D Date/Time: 11/19/22 11:49 Comfortable throughout: section Neuraxial method: spinal Epidural/Spinal procedure site: clean & non-tender Neuro status: Neuro function grossly intact. Cardiovascular status: normal Respiratory status: normal Airway patency: baseline Mental status: baseline Post-Op hydration status: normal Vital Signs: Last Vital Signs Temp 36.6 C 11/19/22 04:19 Pulse 98 11/19/22 04:19 Resp 18 11/19/22 04:19 BP 140/89 11/19/22 04:19 Pulse Ox 100 11/19/22 04:19 O2 Del Method Room Air 11/18/22 23:45 Pain score (VAS): 09/20 I/O: Intake & Output 11/18/22 11/19/22 11/19/22 23:59 07:59 15:59 Intake Total 800 400 Output Total 200 600 Balance 600 -200 Post-procedural complaints: pruritis mild, no treatment Patient feedback: Patient satisfied with anesthetic care.
--- NOTE | 2022-11-19 11:50 | WPDANLDNPN2 ---
Anes-Prog Note L&D-Neuraxial Date/Time: 11/19/22 11:50 Neuraxial medications: intrathecal PF morphine Opiod-related complaints: none Patient feedback: Patient satisfied with post-operative pain management.
[2022-11-19] MEDS: ENOXAPARIN 40 MG/0.4 ML SYRINGE SUB-Q (21:01)
[2022-11-19] MEDS: NIFEdipine 30 MG TAB.ER.24 PO (21:01)
[2022-11-19] MEDS: FLUoxetine HCL 20 MG CAPSULE PO (21:01)
[2022-11-19 21:38] VITALS: BP 135/91; PULSE 69; RESP 16; TEMP 36.3; O2SAT 98
--- NOTE | 2022-11-20 06:15 | PM.OBPNVD ---
OB - PN: Subj Subjective Date/time seen: 11/20/22 06:15 Patient comments: no complaints and pain well controlled baby status: doing well and nursing well OB - PN: Obj Data Labs 11/19/22 02:35 Labs: Laboratory Results - last 24 hr 11/19/22 02:35 WBC 14.1 H RBC 3.48 L Hgb 9.3 L Hct 28.4 L MCV 81.6 MCH 26.7 MCHC 32.7 RDW 14.0 Plt Count 286 MPV 11.3 H Immature Gran % (Auto) 0.6 H Neut % (Auto) 71.2 Lymph % (Auto) 21.3 [place] % (Auto) 5.0 Eos % (Auto) 1.5 Baso % (Auto) 0.4 Lymph # (Auto) 3.01 [place] # (Auto) 0.7 H Eos # (Auto) 0.2 Baso # (Auto) 0.1 Abs Immat Gran (auto) 0.08 H Absolute Neuts (auto) 10.1 H Absolute Nucleated RBC 0.0 Nucleated RBC % 0.0 OB - PN A/P Plan day: 2 Plan: routine care, discharge home and follow up 6 weeks (4 weeks) Time Spent With Patient Time: Total time spent is greater than 50% in coordination of care (as documented) at patient's floor/unit and/or counseling patient: Time with patient: less than 15 minutes Exam Const: General: cooperative, healthy appearing and comfortable Nutritional Appearance: average body habitus Orientation/consciousness: oriented to person, oriented to place and oriented to time HENMT: Head: normal to inspection Resp: Effort & Inspection: normal respiratory effort Cardio: Rate: regular rate Rhythm: regular rhythm Heart sounds: S1 normal heart sound present and S2 normal heart sound present GI: Inspection: normal to inspection and incision (Intact) Auscultation: normal bowel sounds
[2022-11-20] MEDS: DOCUSATE SODIUM 100 MG CAPSULE PO (08:41)
[2022-11-20] MEDS: POLYSACCHARIDE IRON COMPLEX 150 MG CAPSULE PO (08:41)
[2022-11-20] MEDS: MULTIVIT/MIN/PREN/FOL AC/IRON TABLET 1 TAB PO (08:42)
[2022-11-20] MEDS: IBUPROFEN 600 MG TABLET PO (08:42)
[2022-11-20] MEDS: SIMETHICONE 80 MG TAB.CHEW PO (08:42)
[2022-11-20 08:45] VITALS: BP 133/96; PULSE 101; RESP 18; TEMP 36.4; O2SAT 100
[2022-11-22 13:48] VITALS: BP 144/94; PULSE 95; RESP 20; TEMP 37.2; O2SAT 100
== END 2022-11-20 12:10 | disposition home or self-care (01) | DRG 784 ==
LOC: ANHLDR 13:21 → ANHOB2 15:44
PROVIDERS: Admitting Provider Obstetrics & Gynecology; Visit Provider Obstetrics & Gynecology
PROC: 10D00Z1 Extraction of Products of Conception, Low, Open Approach (ICD-10-PCS; CPT 59514; principal; 2022-11-18 12:00)
DX: O34.219 Maternal care for unspecified type scar from previous cesarean delivery (principal); O10.92 Unspecified pre-existing hypertension complicating childbirth; Z30.2 Encounter for sterilization; K21.9 Gastro-esophageal reflux disease without esophagitis; F41.9 Anxiety disorder, unspecified; O99.62 Diseases of the digestive system complicating childbirth; O99.344 Other mental disorders complicating childbirth; O99.824 Streptococcus B carrier state complicating childbirth; Z3A.37 37 weeks gestation of pregnancy; Z37.0 Single live birth; Z86.718 Personal history of other venous thrombosis and embolism; Z79.01 Long term (current) use of anticoagulants
CPT/HCPCS: 36415; 85025; 88302; 88307; A9270; J0131; J0690; J1650; J1885; J2274; J2405; J2590; J7120

== ENCOUNTER 2022-11-24 08:04 | Outpatient (CLI) | payer OTHER, SELFPAY ==
[2022-11-24] VITALS (19 sets, daily range): BP systolic 133–154; BP diastolic 90–101; PULSE 87–114; RESP 18; TEMP 36.8; O2SAT 94–98; BMI 34.7
[2022-11-24 08:54] LABS: Basophils Absolute Auto 0.1 K/mm3 (0.0-0.1); Basophils Percent Auto 0.6 % (0.2-1.2); Eosinophils Absolute Auto 0.5 K/mm3 (0-0.3); Eosinophils Percent Auto 4.6 % (0-4.4); Hematocrit 31.5 % (37.0-47.0); Hemoglobin 10.2 g/dL (12.0-15.0); Immature Granulocyte Absolute 0.07 K/mm3 (0.00-0.031); Immature Granulocyte Percent A 0.7 % (0-0.5); Lymphocytes Percent Auto 24.5 % (18.3-44.2); Mean Corpuscular HGB Conc 32.4 g/dl (32-36); Mean Corpuscular Volume 80.4 fl (80-100); Mean Platelet Volume 10.5 fl (7.4-10.4); Monocytes Absolute Auto 0.5 K/mm3 (0.1-0.6); Monocytes Percent Auto 5.2 % (2.6-8.5); Neutrophils Absolute Auto 6.3 K/mm3 (1.3-6.7); Neutrophils Percent Auto 64.4 % (45.5-73.1); Platelet Count Result 321 k/mm3 (150-375); Red Blood Count 3.92 M/mm3 (4.2-5.4); Red Cell Distribution Width 14.1 % (11.5-14.5); White Blood Count 9.8 K/mm3 (4.5-10.0)
[2022-11-24 09:04] LABS: Alanine Aminotransferase 23 U/L (6-35); Albumin Level 3.8 g/dL (3.5-5.1); Alkaline Phosphatase 107 U/L (38-126); Anion Gap 3 mmol/L (8-16); Aspartate Amino Transferase 28 U/L (14-36); Bilirubin,Total 0.5 mg/dL (0.2-1.3); Blood Urea Nitrogen 13 mg/dL (7-17); Calcium 8.1 mg/dL (8.4-10.2); Carbon Dioxide 24 mmol/L (22-30); Chloride 108 mmol/L (98-107); Estimated CRCL calculation 114 ml/min; Estimated Glomerular Filt Rate > 60; Glucose 84 mg/dL (65-110); Potassium 3.6 mmol/L (3.4-5.0); Sodium 135 mmol/L (137-145); Uric Acid 4.3 mg/dL (2.5-7.5)
--- NOTE | 2022-11-24 09:29 | PC.NURSE ---
Dr. Kayden Grigsby returned page and informed of BP's and lab results. Pt denies headache, visual disturbance, epigastric/RUQ pain. No edema and normal DTR's. Pt had her Procardia 30 XL last night. Orders received.
[2022-11-24] MEDS: NIFEdipine 30 MG TAB.ER.24 PO (09:41)
== END 2022-11-24 10:32 | disposition home or self-care (01) ==
LOC: ANHOBOP 08:06 → ANHOBPP 08:07
PROVIDERS: Obstetrics & Gynecology; Visit Provider Obstetrics & Gynecology
DX: O16.5 Unspecified maternal hypertension, complicating the puerperium (principal)
CPT/HCPCS: 36415; 80053; 84550; 85025; 99199; A9270

== ENCOUNTER 2023-02-23 19:39 | Emergency (ER) | payer OTHER, SELFPAY ==
--- NOTE | 2023-02-23 19:46 | ED.GENADULT ---
HPI - General Adult General Chief complaint: Upper Respiratory Infection Stated complaint: cough,sorethroat Source: patient and RN notes reviewed History of Present Illness HPI narrative: 37 yo F presents to urgent care with complaints of a fever that started today. Pt staes she woke up this morning with a scratchy throat and today spiked a fever while at work. Pt states her temp was 102.9 F. Pt denies any sore throat and just states her throat itches. Pt states she has had a slight cough today as well. Pt denies any congestion, ear pain, chest pain, vomiting, or diarrhea. Denies any dysuria. Pt took an antipyretic [employer]MENT[employer] SERVICES TECH. Related Data Home Medications Medication Instructions Recorded Confirmed omeprazole 20 mg capsule,delayed 20 mg PO DAILY 02/04/22 02/23/23 release Allergies Allergy/AdvReac Type Severity Reaction Status Date / Time No Known Allergies Allergy Unknown Verified 02/23/23 19:49 Review of Systems Review of Systems: Pertinent positives and pertinent negatives per HPI. [facility] Past Medical History Medical History (Updated 02/23/23 @ 20:05 by Darlene Camejo APRN) Benign essential HTN DVT (deep venous thrombosis) Generalized anxiety disorder Surgical History Surgical History (Updated 11/18/22 @ 11:24 by Cliff Vidal MD) History of delivery Family History Family History Father Hypertension Family history of cardiovascular disease Family history of chronic obstructive pulmonary disease Family history of coronary artery disease Mother Hypertension Grandparent Family history of malignant neoplasm Carcinoma of colon Family history of lung cancer Social History Social History Smoking status: Never smoker Alcohol intake: never Substance use: never Lack of Transportation: No Lack of Food: Never True Current Housing: I Have Housing Concerned About Future Housing: No Difficulty Paying Gas/Electric Bills: No Difficulty Paying for Meds: No Currently Unemployed: No Education: Associate Degree Difficulty w/ Childcare or Family Care: No Spiritual care concerns: No Comments At the time of my signature, I reviewed and agree with the nursing past medical, surgical, social, and family history. There is no relevant family history pertinent to the patient complaint. Exam Narrative: GENERAL: This is a well-nourished, well-developed patient, in no apparent distress. HEAD: normocephalic, atraumatic. EYES: Sclera clear/white. Vision is grossly intact. EARS: External ears normal, auditory canals clear and without drainage, TMs normal without perforation. Hearing grossly intact. NOSE: External nose normal with no obvious nasal discharge, nares without redness, no rhinorrhea. THROAT: Mucous membranes moist, posterior pharynx erythemic. No exudate noted. NECK: Neck supple, non-tender without lymphadenopathy, masses or thyromegaly. CARDIOVASCULAR: tachycardia and rhythm without murmurs, gallops, or rubs. RESPIRATORY: Clear to auscultation. Breath sounds equal bilaterally. No wheezes, rales, or rhonchi. SKIN: warm, intact with no suspicious lesions or rash, good texture and turgor. NEURO: awake, alert, and oriented to person, place and time. There were no obvious focal neurologic abnormalities. Course Course Level of Care: Express Care Visit Vital Signs Vital signs: Vital Signs Temperature 98.4 F 02/23/23 19:48 Pulse Rate 120 H 02/23/23 19:48 Respiratory Rate 18 02/23/23 19:48 Blood Pressure 139/95 H 02/23/23 19:48 Pulse Oximetry 99 02/23/23 19:48 Oxygen Delivery Room Air 02/23/23 19:48 Temperature 98.4 F 02/23/23 19:48 Pulse Rate 120 H 02/23/23 19:48 Respiratory Rate 18 02/23/23 19:48 Blood Pressure 139/95 H 02/23/23 19:48 Pulse Oximetry 99 02/23/23 19:48 Oxygen Delivery Room Air 02/23/23
[2023-02-23 19:48] VITALS: BP 139/95; PULSE 120; RESP 18; TEMP 36.9; O2SAT 99
== END 2023-02-23 20:07 | disposition home or self-care (01) ==
PROVIDERS: Emergency Provider Nurse Practitioner Family
DX: B34.9 Viral infection, unspecified (principal); I10 Essential (primary) hypertension; Z86.718 Personal history of other venous thrombosis and embolism
CPT/HCPCS: 87081; 87880; 99213; G0463

== ENCOUNTER 2023-03-03 08:36 | Emergency (ER) | payer OTHER, SELFPAY ==
[2023-03-03 09:14] VITALS: BP 148/102; PULSE 103; RESP 18; TEMP 36.9; O2SAT 100
[2023-03-03 09:16] VITALS: BP 148/102; PULSE 103; RESP 18; TEMP 36.9; O2SAT 100
--- NOTE | 2023-03-03 09:21 | ED.URI ---
HPI - URI/Sore Throat General Chief Complaint: Upper Respiratory Infection Stated Complaint: sorethroat,bilateral ear pain Time Seen by Provider: 03/03/23 09:15 Source: patient Mode of arrival: ambulatory Limitations: no limitations History of Present Illness HPI Narrative: 37-year-old female presents with complaint of sinus congestion, sinus pressure, postnasal drainage, sore throat for the past 10 days. Reports intermittent exudates to tonsils. Afebrile. Taking Flonase to treat symptoms. States she does not want take any other dxjm-pat-ooxodrt medications due to . Denies chest pain and shortness of breath. All systems reviewed and negative except as noted above. Related Data Home Medications Medication Instructions Recorded Confirmed omeprazole 20 mg capsule,delayed 20 mg PO DAILY 02/04/22 03/03/23 release Allergies Allergy/AdvReac Type Severity Reaction Status Date / Time No Known Allergies Allergy Unknown Verified 03/03/23 09:15 Review of Systems Review of Systems: CONSTITUTIONAL: Denies fever, chills, or sweats. Reports fatigue. EYES: Denies visual changes, redness, or discharge. ENT: Reports rhinorrhea, congestion, sore throat, sinus pressure and bilateral ear pressure. CARDIOVASCULAR: Denies chest pain, palpitations, or edema. RESPIRATORY: Denies cough or dyspnea. GASTROINTESTINAL: Denies abdominal pain, nausea, vomiting, or diarrhea. GENITOURINARY: Denies dysuria or hematuria. SKIN: Denies rash or itching. MUSCULOSKELETAL: Denies back pain, joint pain, or myalgia. NEUROLOGIC: Reports headache. Denies numbness, or weakness. PSYCHIATRIC: Denies anxiety or depression. All other systems reviewed are negative, except as documented in HPI. [facility] Past Medical History Medical History (Updated 03/03/23 @ 09:31 by Christina Platt NP) Benign essential HTN DVT (deep venous thrombosis) Generalized anxiety disorder Surgical History Surgical History (Updated 11/18/22 @ 11:24 by Cliff Vidal MD) History of delivery Family History Family History Father Hypertension Family history of cardiovascular disease Family history of chronic obstructive pulmonary disease Family history of coronary artery disease Mother Hypertension Grandparent Family history of malignant neoplasm Carcinoma of colon Family history of lung cancer Social History Social History Smoking status: Never smoker Alcohol intake: never Substance use: never Lack of Transportation: No Lack of Food: Never True Current Housing: I Have Housing Concerned About Future Housing: No Difficulty Paying Gas/Electric Bills: No Difficulty Paying for Meds: No Currently Unemployed: No Education: Associate Degree Difficulty w/ Childcare or Family Care: No Spiritual care concerns: No Comments At time of signature, agree with nursing past medical, surgical, social and family history. There is no relevant family history pertinent to the presenting complaint. Exam Narrative: GENERAL: This is a well-nourished, well-developed patient, in no apparent distress. HEAD: normocephalic, atraumatic. EYES: PERRL. Sclera clear/white. Vision is grossly intact. EARS: External ears normal, auditory canals clear and without drainage, Fluid bilateral TMs without erythema. NOSE: External nose normal with purulence nasal drainage with erythema to both nares. Bilateral maxillary sinus tenderness on palpation. THROAT: Mucous membranes moist, Mild erythema with postnasal drainage. No exudates. NECK: Neck supple, non-tender without lymphadenopathy, masses or thyromegaly. CARDIOVASCULAR: Regular rate and rhythm without murmurs, gallops, or rubs. RESPIRATORY: Clear to auscultation. Breath sounds equal bilaterally. No wheezes, rales, or rhonchi. SKIN: warm, Dry, intact with no nancy
== END 2023-03-03 09:33 | disposition home or self-care (01) ==
PROVIDERS: Emergency Provider Nurse Practitioner Family
DX: J01.90 Acute sinusitis, unspecified (principal); I10 Essential (primary) hypertension; Z86.718 Personal history of other venous thrombosis and embolism
CPT/HCPCS: 87081; 87420; 87804; 87880; 99213; G0463

== ENCOUNTER 2023-03-15 09:08 | Outpatient (CLI) | payer OTHER, SELFPAY ==
[2023-03-15 09:26] LABS: Basophils Absolute Auto 0.1 K/mm3 (0.0-0.1); Basophils Percent Auto 0.8 % (0.2-1.2); Eosinophils Absolute Auto 0.2 K/mm3 (0-0.3); Eosinophils Percent Auto 1.9 % (0-4.4); Hemoglobin 12.2 g/dL (12.0-15.0); Immature Granulocyte Absolute 0.03 K/mm3 (0.00-0.031); Immature Granulocyte Percent A 0.3 % (0-0.5); Lymphocytes Absolute Auto 2.69 K/mm3 (0.9-3.2); Lymphocytes Percent Auto 30.7 % (18.3-44.2); Mean Corpuscular HGB Conc 32.1 g/dl (32-36); Mean Corpuscular Hemoglobin 25.5 pg (26-34); Mean Corpuscular Volume 79.5 fl (80-100); Mean Platelet Volume 10.6 fl (7.4-10.4); Monocytes Absolute Auto 0.6 K/mm3 (0.1-0.6); Monocytes Percent Auto 6.9 % (2.6-8.5); Neutrophils Absolute Auto 5.2 K/mm3 (1.3-6.7); Neutrophils Percent Auto 59.4 % (45.5-73.1); Platelet Count Result 376 k/mm3 (150-375); Red Blood Count 4.78 M/mm3 (4.2-5.4); Red Cell Distribution Width 15.2 % (11.5-14.5); White Blood Count 8.8 K/mm3 (4.5-10.0)
[2023-03-15 09:34] LABS: Alanine Aminotransferase 17 U/L (6-35); Albumin Level 4.5 g/dL (3.5-5.1); Alkaline Phosphatase 149 U/L (38-126); Anion Gap 8 mmol/L (8-16); Aspartate Amino Transferase 24 U/L (14-36); Bilirubin,Total 0.5 mg/dL (0.2-1.3); Blood Urea Nitrogen 12 mg/dL (7-17); Carbon Dioxide 28 mmol/L (22-30); Chloride 105 mmol/L (98-107); Estimated Glomerular Filt Rate > 60; Glucose 91 mg/dL (65-110); Potassium 3.8 mmol/L (3.4-5.0); Sodium 141 mmol/L (137-145)
== END 2023-03-15 09:09 | disposition home or self-care (01) ==
LOC: ANHOBOP 09:10
PROVIDERS: Visit Provider Obstetrics & Gynecology
DX: R19.7 Diarrhea, unspecified (principal)
CPT/HCPCS: 36415; 80053; 84443; 85025

== ENCOUNTER 2023-10-10 10:54 | Outpatient (CLI) | payer OTHER, SELFPAY ==
[2023-10-10 14:32] LABS: Cholesterol 151 mg/dL (0-200); HDL Direct 40 mg/dL; Triglycerides 65 mg/dL (<150)
[2023-10-10 14:59] LABS: LDL Cholesterol Direct 83 mg/dL
[2023-10-10 15:00] LABS: Alanine Aminotransferase 37 U/L (6-35); Albumin Level 4.5 g/dL (3.5-5.1); Alkaline Phosphatase 127 U/L (38-126); Anion Gap 9 mmol/L (8-16); Aspartate Amino Transferase 70 U/L (14-36); Bilirubin,Total 0.7 mg/dL (0.2-1.3); Blood Urea Nitrogen 11 mg/dL (7-17); Carbon Dioxide 23 mmol/L (22-30); Chloride 107 mmol/L (98-107); Estimated Glomerular Filt Rate > 60; Glucose 88 mg/dL (65-110); Potassium 4.1 mmol/L (3.4-5.0); Sodium 139 mmol/L (137-145)
[2023-10-10 15:19] LABS: Hemoglobin A1C 5.1 % (<5.7)
== END 2023-10-10 10:55 | disposition home or self-care (01) ==
LOC: ANHGOSHLAB 10:55
PROVIDERS: PCP Emergency Medicine; Visit Provider Emergency Medicine
DX: E66.9 Obesity, unspecified (principal); I10 Essential (primary) hypertension
CPT/HCPCS: 36415; 80053; 80061; 83036

== ENCOUNTER → 2023-10-11 08:38 | Outpatient (CLI) | payer OTHER, SELFPAY ==
--- NOTE | ~2023-10-11 | US_ITS ---
Limited Abdominal Sonogram: Real-time sonographic imaging of the right upper quadrant was performed. Clinical History: Abnormal serum enzyme levels Findings: The liver appears normal with no evidence of mass lesion or bile duct dilatation. Main por kylee vein demonstrates normal direction of flow. The gallbladder is absent, compatible prior cholecyst ectomy. The common bile duct measures 5 mm. The visualized pancreas, aorta, and IVC are unremarkable . Impression: No significant abnormality seen. Status post cholecystectomy. Reviewed, dictated and finalized at location . S PROMOTION MANAGER Impression: No significant abnormality seen. Status post cholecystectomy.
== END ==
PROVIDERS: PCP Emergency Medicine; Visit Provider Emergency Medicine
DX: R74.8 Abnormal levels of other serum enzymes (principal); Z90.49 Acquired absence of other specified parts of digestive tract
CPT/HCPCS: 76705

== ENCOUNTER 2023-10-11 13:31 | Outpatient (CLI) | payer OTHER, SELFPAY ==
--- NOTE | 2023-10-11 13:44 | ECHO_ITS ---
Patient Info Name: Luana Estrada Age: 38 years : 1985 Gender: Female Ht: 66 in Wt: 215 lbs BSA: 2.17 m2 HR: 78 bpm BP: 155 / 102 mmHg Heart Rhythm: Sinus Rhythm Technical Quality: Good Exam Date: 10/11/2023 1:57 PM Exam Location: Echo Lab Patient Status: Outpatient Admit Date: 10/11/2023 Staff Ordering Physician: Santiago Mullen MD Director Of Curriculum And Instruction: Lazara Mcallister RDCS Attending Provider: Santiago Mullen MD Referring Physician: Sebas WILHELM; Exam Type: CA echo doppler color flow Study Info Indications R01.1 - Cardiac murmur, unspecified Complete two-dimensional, color flow and Doppler transthoracic echocardiogram is performed. Summary 1. Complete two-dimensional, color flow and Doppler transthoracic echocardiogram is performed. 2. Left ventricular chamber dimension is normal. 3. Left ventricular systolic function is normal, estimated at 60-65%. 4. The left ventricular diastolic function is normal. 5. E/e' 8 is minimally elevated. 6. Left atrial chamber dimension is mildly enlarged. 7. There is mild mitral valve regurgitation. 8. There is mild tricuspid valve regurgitation. 9. No pulmonary hypertension, estimated pulmonary arterial systolic pressure is 27 mmHg. Left Ventricle E/e' 8 is minimally elevated. Left ventricular chamber dimension is normal. Left ventricular systolic function is normal, estimated at 60-65%. The left ventricular diastolic function is normal. Right Ventricle Right ventricular systolic function is normal and with normal TAPSE 2.7 cm. Right ventricular chamber dimension is normal. Left Atria Left atrial chamber dimension is mildly enlarged. Right Atria Right atrial chamber dimension is normal. Aortic Valve The aortic valve is trileaflet. There is no aortic valve stenosis. There is no aortic valve regurgitation. Pulmonic Valve There is no pulmonic regurgitation. Mitral Valve There is no mitral valve stenosis. There is mild mitral valve regurgitation. Tricuspid Valve There is mild tricuspid valve regurgitation. No pulmonary hypertension, estimated pulmonary arterial systolic pressure is 27 mmHg. Pericardium/Pleural There is no pericardial effusion. Inferior Vena Cava Normal inferior vena cava with >50% collapse upon inspiration consistent with normal right atrial pressure, 5 mmHg. Aorta The aortic root size at the sinus of Valsalva is normal. Left Ventricular Outflow Tract Name Value Normal LVOT 2D LVOT Diameter 2.0 cm LVOT Doppler LVOT Peak Gradient 8 mmHg LVOT Mean Gradient 4 mmHg LVOT VTI 27 cm LVOT VTI/AV VTI Ratio 0.9 LVOT Stroke Volume 83 ml LVOT CO 6.2 l/min LVOT CI 2.8 l/min/m2 Pulmonic Valve Name Value Normal RVOT Doppler RVOT Peak Gradient 2 mmHg
== END 2023-10-11 13:32 | disposition home or self-care (01) ==
LOC: ANHCARD 13:32
PROVIDERS: PCP Emergency Medicine; Visit Provider Emergency Medicine
DX: R01.1 Cardiac murmur, unspecified (principal); I34.0 Nonrheumatic mitral (valve) insufficiency; I36.1 Nonrheumatic tricuspid (valve) insufficiency
CPT/HCPCS: 93306

== ENCOUNTER 2023-12-20 09:34 | Outpatient (CLI) | payer OTHER, SELFPAY ==
[2023-12-20 10:16] LABS: Basophils Absolute Auto 0.1 K/mm3 (0.0-0.1); Basophils Percent Auto 0.5 % (0.2-1.2); Eosinophils Absolute Auto 0.2 K/mm3 (0-0.3); Eosinophils Percent Auto 1.7 % (0-4.4); Hematocrit 39.8 % (37.0-47.0); Hemoglobin 12.7 g/dL (12.0-15.0); Immature Granulocyte Absolute 0.04 K/mm3 (0.00-0.031); Immature Granulocyte Percent A 0.4 % (0-0.5); Lymphocytes Percent Auto 26.6 % (18.3-44.2); Mean Corpuscular HGB Conc 31.9 g/dl (32-36); Mean Corpuscular Hemoglobin 27.5 pg (26-34); Mean Corpuscular Volume 86.1 fl (80-100); Mean Platelet Volume 11.1 fl (7.4-10.4); Monocytes Absolute Auto 0.7 K/mm3 (0.1-0.6); Monocytes Percent Auto 6.2 % (2.6-8.5); Neutrophils Absolute Auto 7.1 K/mm3 (1.3-6.7); Neutrophils Percent Auto 64.6 % (45.5-73.1); Platelet Count Result 319 k/mm3 (150-375); Red Blood Count 4.62 M/mm3 (4.2-5.4); Red Cell Distribution Width 14.4 % (11.5-14.5); White Blood Count 10.9 K/mm3 (4.5-10.0)
[2023-12-20 10:31] LABS: Alanine Aminotransferase 13 U/L (6-35); Albumin Level 4.4 g/dL (3.5-5.1); Alkaline Phosphatase 110 U/L (38-126); Amylase 74 U/L (30-110); Anion Gap 4 mmol/L (4-12); Aspartate Amino Transferase 19 U/L (14-36); Bilirubin,Total 0.6 mg/dL (0.2-1.3); Blood Urea Nitrogen 9 mg/dL (7-17); Calcium 8.9 mg/dL (8.4-10.2); Carbon Dioxide 27 mmol/L (22-30); Chloride 107 mmol/L (98-107); Estimated Glomerular Filt Rate > 60; Glucose 98 mg/dL (65-110); Lipase 61 U/L (23-300); Potassium 4.4 mmol/L (3.4-5.0); Sodium 138 mmol/L (137-145)
== END 2023-12-20 09:35 | disposition home or self-care (01) ==
PROVIDERS: PCP Emergency Medicine; Visit Provider Emergency Medicine
DX: R74.8 Abnormal levels of other serum enzymes (principal); Z87.19 Personal history of other diseases of the digestive system
CPT/HCPCS: 36415; 80053; 82150; 83690; 85025

== ENCOUNTER 2024-07-29 11:49 | Outpatient (CLI) | payer OTHER, SELFPAY ==
[2024-07-29 12:50] LABS: Beta HCG Quantitative < 2.39 mIU/ML
== END 2024-07-29 11:50 | disposition home or self-care (01) ==
PROVIDERS: PCP Emergency Medicine; Visit Provider Obstetrics & Gynecology
DX: N93.9 Abnormal uterine and vaginal bleeding, unspecified (principal)
CPT/HCPCS: 36415; 84702

== ENCOUNTER 2024-07-31 13:55 | Outpatient (NON) | payer OTHER, SELFPAY ==
[2024-07-31 15:16] LABS: Beta HCG Quantitative < 2.39 mIU/ML
== END 2024-07-31 13:56 | disposition home or self-care (01) ==
LOC: ANHOBOP 13:56
PROVIDERS: PCP Emergency Medicine; Visit Provider Obstetrics & Gynecology
DX: N92.6 Irregular menstruation, unspecified (principal)
CPT/HCPCS: 36415; 84702

== ENCOUNTER 2024-08-12 15:56 | Outpatient (CLI) | payer OTHER, SELFPAY ==
--- NOTE | ~2024-08-12 | US_ITS ---
EXAMINATION: US pelvic complete w TV DATE: 08/12/2024 16:31 INDICATION: Pelvic pain. TECHNIQUE: Multiple transabdominal sonographic images of the pelvis were obtained. COMPARISON: None. FINDINGS: The uterus measures 7.7 x 3.2 x 4.7 cm. There is no free fluid in the pelvis. The endometrial complex measures 8 mm in thickness. The right ovary measures 2.4 x 1.4 x 2.1 cm. The left ovary measures 2.3 x 1.3 x 2.2 cm. There is normal vascular flow in the ovaries. IMPRESSION: 1. Normal pelvis. Reviewed, dictated and finalized at location A. CE SUPPORT ASSISTANT IMPRESSION: 1. Normal pelvis.
== END 2024-08-12 15:57 | disposition home or self-care (01) ==
PROVIDERS: PCP Emergency Medicine; Visit Provider Obstetrics & Gynecology
DX: R10.2 Pelvic and perineal pain (principal)
CPT/HCPCS: 76830; 76856

== ENCOUNTER 2024-12-02 12:38 | Outpatient (CLI) | payer OTHER, SELFPAY ==
--- OUTSIDE RECORDS SUMMARY | 2024-12-02 14:16 | XMS_ITS | Clinical Summary ---
Author Organization [facility] Address [address] [place] [address] Care Team Providers Care Computer Aided Design Operator Name Role Phone Lilliana Tate MD Unavailable [phone] Louise Nguyen RN Unavailable Cortez Guy MD Unavailable [phone] Belle Moore MD Primary Care Provider [phone] Source Comments [facility],non-owned Affiliates and Associated Physician Practices is amultiple site organization consisting of ambulatory clinics and hospital sitesin [place], [place], [place] and [place]. This disclosure is being madepursuant to the Care Everywhere program and may not contain all information available regarding this patient. Last updated 18.[facility] Allergies No known active allergies Medications * Be aware that medications may not be up to date on this document. Alwaysverify current medications with the patient. Medication Sig Dispensed Refills Start Date End Date Status YFA-EKY-AW-FISH OIL PO Take 1 Tab by mouth once daily Active Syringe, Disposable, 3 ML MISC Use 1 Each 2 times daily 20 Each 02/14/2017 Active Additional Information Patient not taking.Reported on 06/28/2017 Needle, Disp, 31G X 5/16 MISC Use 1 Each 2 times daily 20 Each 02/14/2017 Active Additional Information Patient not taking.Reported on 06/28/2017 enoxaparin (LOVENOX) injectionIndicatio ns:Deep Vein Thrombosis of Lower Extremity Inject 90 mg subcutaneously every 12 hours Reasons: Deep Vein Thrombosis of Lower Extremity 60 mL 6 02/24/2017 Active Additional Information Patient not taking.Reported on 06/28/2017 B-D 3CC LUER-MECHE SYR 26GX5/8 26G X 5/8 3 ML MISC USE BID 0 02/17/2017 Active enoxaparin (LOVENOX) injection 10 05/16/2017 Active Active Problems Problem Noted Date Diagnosed Date Left leg swelling 04/28/2017 Venous insufficiency 04/28/2017 Mild preeclampsia delivered 01/25/2017 Overview (02/24/2017): 02/24/2017: BP stable on no meds. 24 hour urine protein >300mg,urine culture neg. Deep vein thrombosis (DVT) d uring , delivered, left common femoral vein 11/30/2016 Overview (02/28/2017): 02/28/2017: normal platelets 02/24/2017: discharged home on Lovenox 1mg/kg (90mg) 02/17/2017: Heparin 24,000 units BID, PTT = 33 seconds, increase to 28,000 units BID 02/16/17: Heparin 20,000 units BID, repeat PTT = 29 seconds 02/15/17: Heparin: 17,500 units BID, repeat PTT = 27 seconds 02/14/2017: aPTT baseline = 27 seconds. 01/2017: Lovenox increased to 94 units q 12 hours to maintain 1mg/kg dosing. 12/08/2016: Anti-factor Xa activity = 0.53 units (therapeutic) Noted 11/30/16. Started on Lovenox 1mg/kg q 12hours. Will maintain therapeutic levels. Switch to heparin at 36 weeks. Monitoring: peak anti-factor Xa activity 4-6 hours after dosing. Desired level is 0.6 to 1 u/ml. Factor X assay was ordered - incorrect lab for monitoring LMW heparin. Will reorder Anti-factor Xa activity. 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 Obese 06/24/2015 Dysmenorrhea 03/12/2014 Resolved Problems Problem Noted Date Diagnosed Date Resolved Date Polyhydramnios in third trimester 01/06/2017 02/24/2017 Overview (01/27/2017): 01/27/2017: MIGUEL ANGEL=24.8cm, SZD=9586q, 5#, 52%ile. 01/04/17: MIGUEL ANGEL=26cm. Repeat ultrasound in 2 weeks for EFW & MIGUEL ANGEL. YRG=1062m, 3#12oz, 64%ile Antepartum anemia in second trimester 12/05/2016 02/24/2017 Overview (01/25/2017): 01/15/17: Hgb = 12. Continue iron. 12/02/16: Hgb=9.8. Needs to start on iron. Tachycardia 12/01/2016 01/25/2017 echogenic intracardiac focus on ultrasound 10/25/2016 02/24/2017 High risk , antepartum 08/31/2016 02/24/2017 Overview (02/14/2017): 02/14/2017: GBS neg B+/I/-/-/-/- Flu shot already. Hyponatremia 07/31/2015 07/31/2015 Hypokalemia 07/31/2015 08/01/2015 Assessment & Plan (07/31/2015 11:53 AM UMBRELLA CUTTER): Low today. -Replete today with 40 IV K Assessment & Plan (07/31/2015 8:27 AM UMBRELLA CUTTER): Low today. -Replete today with 40 IV K Abdominal pain, RUQ (right upper quadrant) 06/24/2015 09/28/2016 Assessment & Plan (08/01/2015 12:26 PM UMBRELLA CUTTER): Tolerated clears last night. GI evaluated this AM. Thinks more likely related to Gallbladder disease. -GI following, appreciate recs -MRCP today, if normal will obtain HIDA Scan (has appointment scheduled from previous work-up). -pain management with PRN Tylenol (mod-severe pain) and Morphine (severe pain) -D/c fluids once tolerating advanced diet -Advance diet to full liquids (low fat) after MRCP -protonix IV and Zofran Assessment & Plan (07/31/2015 9:08 AM UMBRELLA CUTTER): Since March 2015, comes and goes, worse with fatty meals. Now radiating to epigastric and L flank. Lipase is elevated. Also on estrogen OCP, could cause pancreatitis. -CT abdomen -Consult GI -pain management with morphine -fluids -protonix IV and Zofran -may advance to clears today if tolerates, NPO this morning Tachycardia 09/28/2016 Overview (09/28/2011): was on toprol in the past Immunizations Name Administration Dates Next Due INFLUENZA VACCINE 06/17/2016,06/18/2015 TDAP (7yrs+) 01/04/2017 Family History Medical History Relation Name Comments CAD (Coronary Artery Disease) Father Cholelithiasis Father had gallbladd er surgery in his 40's Hypercholesterolemia Father Lung Cancer Maternal Grandfather Cancer - Colon Maternal Grandmother Hypertension Mother Scoliosis Mother Cancer - Colon Paternal Grandfather Diabetes Paternal Grandfather Anesthesia Reaction Neg Hx Defects Neg Hx Osteoporosis Neg Hx Relation Name Status Comments Brother 1 Alive half Brother 2 Alive half Father Alive Maternal Grandfather Maternal Grandmother Mother Alive Paternal Grandfather Sister 1 Alive half Sister 2 Alive half Social History Tobacco Use Types Packs/Day Years Used Date Smoking Tobacco: Former Cigarettes 0.5 3 1 10/12/2005 - 08/11/2009 Smokeless Tobacco: Never Tobacco Cessation:Counseling Given: Yes Alcohol Use Standard Drinks/Week Comments No 0 (1 standard drink = 0.6 oz pur e alcohol) abstained since March 2015 Sex and Gender Information Value Date Recorded Sex Assigned at Not on file Gender Identity Female 06/07/2017 11:44 AM CDT Sexual Orientation Not on file Last Filed Vital Signs Vital Sign Reading Time Taken Comments Blood Pressure 124/82 06/28/2017 10:02 AM CDT Pulse 110 06/28/2017 10:02 AM CDT Temperature 37.2 C (98.9 F) 06/28/2017 10:02 AM CDT Respiratory Rate 16 06/28/2017 10:02 AM CDT Oxygen Saturation 98% 06/28/2017 10:02 AM CDT Inhaled Oxygen Concentration - - Weight 85.3 kg (188 lb) 06/28/2017 10:02 AM CDT Height 167.6 cm (5' 6 ) 06/28/2017 10:02 AM CDT Body Mass Index 30.34 06/28/2017 10:02 AM CDT Plan of Treatment Health Maintenance Due Date Last Done Comments HEPATITIS C SCREENING 04/18/2005 HEPATITIS B VACCINE (1 of 3 - 19+ 3-dose series) 2006 PAP SMEAR 08/02/2019 08/02/2016, 01/09, 01/22/2013, Additional history exists COVID-19 VACCINE ( - 2023- season) 2024 INFLUENZA VACCINE (#1) 2024 06/17/2016, 2014 DEPRESSION SCREENING 09/11/2024 DTAP/TDAP/TD VACCINES (2 - Td or Tdap) 01/04/2027 01/04/2017 ZOSTER VACCINE (1 of 2) 2037 HIV SCREENING Completed 08/03/2016 HIB VACCINE Aged Out No longer eligi ble based on patient's age to complete this topic HPV VACCINE Aged Out No longer eligi ble based on patient's age to complete this topic MENINGOCOCCAL (Group B) VACCINE SHARED DECISION-MAKING Aged Out No longer eligible based on patient's age to complete this topic MENINGOCOCCAL GROUPS A/C/Y/W VACCINE Aged Out No longer eligible based on patient's age to complete this topic PNEUMOCOCCAL VACCINE Aged Out No long er eligible based on patient's age to complete this topic Procedures Procedure Name Priority Date/Time Associated Diagnosis Comments OBSTETRIC PANEL Routine 08/03/2016 3:17 PM UMBRELLA CUTTER examination or test, positive result PAP LB RFLX HPV ASCU Routine 08/02/2016 4:01 PM UMBRELLA CUTTER Well woman exam with routine gynecological exam from Last 3 Months or Most Recently Relevant to Health Maintenance Results * (ABNORMAL) OBSTETRIC PANEL (08/03/2016 3:17 PM UMBRELLA CUTTER) Hepatitis B Virus Surface Antigen Negative Negative [facility] ACCOUNT BILL Rubella Antibody 1.41 Immune >0.99 index [facility] ACCOUNT BILL Comment: Non-immune <0.90 Equivocal 0.90 - 0.99 Immune >0.99 ABO B [facility] ACCOUNT BILL Rh Type Positive [facility] ACCOUNT BILL Comment: Please note: Prior records for this patient's ABO / Rh type are not available for additional verification. Antibody Screen Negative Negative [facility] ACCOUNT BILL RPR Non Reactive Non Reactive [facility] ACCOUNT BILL HIV Screen 4th Generation w Reflex Non Reactive Non Reactive [facility] ACCOUNT BILL WBC 13.6(H) 3.4 - 10.8 x10E3/uL [facility] ACCOUNT BILL RBC 4.29 3.77 - 5.28 x10E6/uL [facility] ACCOUNT BILL Hemoglobin 12.6 11.1 - 15.9 g/dL [facility] ACCOUNT BILL Hematocrit 38.0 34.0 - 46.6 % [facility] ACCOUNT BILL MCV 89 79 - 97 fL [facility] ACCOUNT BILL MCH 29.4 26.6 - 33.0 pg [facility] ACCOUNT BILL MCHC 33.2 31.5 - 35.7 g/dL [facility] ACCOUNT BILL RDW 14.0 12.3 - 15.4 % [facility] ACCOUNT BILL Platelet Count 316 150 - 379 x10E3/uL [facility] ACCOUNT BILL Granulocytes % 69 % [facility] ACCOUNT BILL Lymphocytes % 25 % [facility]OUNT BILL Monocytes % 5 % [facility]OUNT BILL Eosinophils % 1 % [facility] ACCOUNT BILL Basophils % 0 % [facility] ACCOUNT BILL Immature Cells NOT NEEDED [facility] ACCOUNT BILL Comment:Ancillary determined the test is not needed Granulocytes Absolute 9.4(H) 1.4 - 7.0 x10E3/uL [facility] ACCOUNT BILL Lymphocytes Absolute 3.3(H) 0.7 - 3.1 x10E3/uL [facility] ACCOUNT BILL Monocytes Absolute 0.7 0.1 - 0.9 x10E3/uL [facility] ACCOUNT BILL Eosinophils Absolute 0.1 0.0 - 0.4 x10E3/uL [facility] ACCOUNT BILL Basophils Absolute 0.0 0.0 - 0.2 x10E3/uL [facility] ACCOUNT BILL Immature Granulocytes 0 % [facility] ACCOUNT BILL Immature Granulocytes Absolute 0.0 0.0 - 0.1 x10E3/uL [facility] ACCOUNT BILL nRBC NOT NEEDED [facility] ACCOUNT BILL Comment:Ancillary determined the test is not needed Comment Hematology NOT NEEDED [facility] ACCOUNT BILL Comment:Ancillary determined the test is not needed Blood BLOOD SPECIMEN / Unknown 08/03/2016 3:17 PM UMBRELLA CUTTER 08/03/2016 Narrative Resulting Agency Comment [facility] [address] [facility] [id number] Lilliana Tate MD LAB - CHEMISTRY ARVIND LONG [facility] ACCOUNT BILL [address] [place] [address] * PAP SMEAR LB RFLX HPV ASCU (PO REF LAB) (08/02/2016 4:01 PM UMBRELLA CUTTER) Diagnosis [facility] ACCOUNT BILL Comment:NEGATIVE FOR INTRAEP ITHELIAL LESION AND MALIGNANCY. Specimen Adequacy [facility] ACCOUNT BILL Comment: Satisfactory for evaluation. Endocervical and/or squamous metaplastic cells (endocervical component) are present. Clinician Provided ICD10 [facility] ACCOUNT BILL Comment: Z01.419 Z32.01 Performed by [facility] ACCOUNT BILL Comment:Sharri Hays, Cytot echnologist (ASCP) Comment . [facility] ACCOUNT BILL Note [facility] ACCOUNT BILL Comment: The Pap smear is a screening test designed to aid in the detection of premalignant and malignant conditions of the uterine cervix. It is not a diagnostic procedure and should not be used as the sole means of detecting cervical cancer. Both false-positive and false-negative reports do occur. . Note [facility] ACCOUNT BILL Comment: The HPV DNA reflex criteria were not met with this specimen result therefore, no HPV testing was performed. . Pathology/Cytolog y ENTIRE ENDOCERVIX / Unknown 08/02/2016 4:01 PM UMBRELLA CUTTER 08/02/2016 Narrative [facility] ACCOUNT BILL - 08/05/2016 5:08 PM UMBRELLA CUTTER Source.............Cervix;Endocervix LMP / Prev Treat...ONN=[id number] Other.............. No. of containers..01 CYTYC Thin Prep Vial Resulting Agency Comment [facility] [address] [place] [address] Arron Valdes [id number] Lilliana Tate MD LAB - PATHOLOGY/CYTO LOGY ORDERABLES [facility] ACCOUNT BILL [address] [place] [address] from Last 3 Months or Most Recently Relevant to Health Maintenance Advance Directives * Full Code (Latest Code Status on File) Date Activated Date Inactivated Comments 02/21/2017 8:16 AM 02/24/2017 4:39 PM * Full Code Date Activated Date Inactivated Comments 02/20/2017 8:18 AM 02/21/2017 8:16 AM * Full Code Date Activated Date Inactivated Comments 11/30/2016 1:53 PM 12/03/2016 9:39 PM * Full Code Date Activated Date Inactivated Comments 11/30/2016 1:20 PM 11/30/2016 1:53 PM * Full Code Date Activated Date Inactivated Comments 11/29/2016 1:13 PM 11/29/2016 5:59 PM Care Teams Computer Aided Design Operator Relationship Specialty [place] [address] [place] [address] [place] [id number] PCP - General 11/21/19 Lilliana Tate MD [address] [place] [address] Vp Rheumatology Obstetrics and Gynecology 09/28/11 Louise Nguyen, RN Filter Tip Catcher 07/31/15 Cortez Guy MD Vascular Surgery 12/23/16
--- OUTSIDE RECORDS SUMMARY | 2024-12-02 14:16 | XMS_ITS | Clinical Summary ---
Author Organization [facility] Virtual Care Address [address] [place] [phone] Phone Care Team Providers Care Vice President Global Digital Marketing Name Role Phone Emilia Alcaraz MD Primary Care Provider [phone] Allergies No known active allergies Medications metoprolol XL (TOPROL-XL) 50 mg extended release tabletIndications :hypertension Take 50 mg by mouth nightly 2 Active Microgestin 1/20, 21, 1-20 mg-mcg per tabletIndications : Contraception Take 1 tablet by mouth nightly 2 Active FLUoxetine (PROzac) 20 mg tabletIndications :Anxiety with Depression Take 20 mg by mouth daily before breakfast Active omeprazole OTC (PriLOSEC OTC) 20 mg EC tabletIndications :Treatment of Non-Bleeding Gastric Disorder Take 20 mg by mouth daily before breakfast Active acetaminophen (TYLENOL) 325 mg tablet Take 650 mg by mouth every 6 (six) hours as needed for pain Active HYDROcodone-aceta minophen (NORCO) 5-325 mg per tabletIndications :Pain Take 1 tablet by mouth every 6 (six) hours as needed for pain for up to 15 doses 15 tablet 2 Active Additional Information Patient not taking.Reported on 03/17/2022 hydrocortisone 0.5 % ointment Apply topically 2 (two) times a day Apply to right incision 30 g 1 2 Active Additional Information Patient not taking.Reported on 03/17/2022 Active Problems Problem Noted Date Diagnosed Date Pulsatile tinnitus, right ear 12/03/2021 Cerebral venous thrombosis of sigmoid sinus 11/10 Overview (12/03/2021): Added automatically from request for surgery [id number] Surgical History Surgery Date Site/Laterality Comments CHOLECYSTECTOMY 09/11/2014 - 09/10/2015 SECTION 09/11/2016 - 09/10/2017 Medical History Medical History Date Comments Hypertension DVT (deep vein thrombosis) in Motion sickness Family History Medical History Relation Name Comments Anesthesia problems Neg Hx Social History Tobacco Use Types Packs/Day Years Used Date Smoking Tobacco: Former Cigarettes Q uit: 2010 Smokeless Tobacco: Never AUDIT-C Answer Date Recorded Q1: How often do you have a drink containing alc ohol? Monthly or less 12/20/2021 Q2: How many drinks containi ng alcohol do you have on a typical day when you are drinking? 1 or 2 12/20/2021 Q3: How often do you have si x or more drinks on one occasion? 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 Gender Identity Not on file Sexual Orientation Not on file Obstetrics History Last Filed Vital Signs Vital Sign Reading Time Taken Comments Blood Pressure 162/107 12/20/2021 1:10 PM CDT Pulse 96 12/20/2021 1:10 PM CDT Temperature 36.2 C (97.2 F) 12/20/2021 12:00 PM CDT Respiratory Rate 14 12/20/2021 1:10 PM CDT Oxygen Saturation 96% 12/20/2021 1:10 PM CDT Inhaled Oxygen Concentration - - Weight 99.8 kg (220 lb) 12/14/2021 10:15 AM CDT Height 167.6 cm (5' 6 ) 12/14/2021 10:15 AM CDT Body Mass Index 35.51 12/14/2021 10:15 AM CDT Plan of Treatment Health Maintenance Due Date Last Done Comments Cervical Cancer Screening 1987 Depression Screening 1987 Hepatitis C Screening 1987 Varicella Vaccines (1 of - + 2-dose series) 2000 Hepatitis B Screening 2005 Regular Well Visit/Exam 18-64 2005 Covid-19 Vaccine (2023-2 5 season) 2024 09/18/2020, 08/29/2020 Influenza Vaccine (#1) 2024 8, 06/17/2016, 06/18/2015 DTaP/Tdap/Td Vaccine (2 - Td or Tdap) 01/04/2027 01/04/2017 HPV Vaccines Aged Out No longer eligi ble based on patient's age to complete this topic Pneumococcal vaccine <65 Aged Out No longer eligible based on patient's age to complete this topic Medical Devices Implanted Type Area Senior Center Director Device Identifier Shelf Expiration Date Model / Serial / Lot Roberto Craniomaxillofacial [id number] Directinject Cement 5cc Bone Hendesron - [id number] Implanted:Qty: 1 on 12/20/2021 by Morales East MD at [facility] Right : Ear Roberto Craniomaxillofacial [id number] 05/18/2023 [id number] / / [id number] Insurance [facility] Care Teams Vice President Global Digital Marketing Relationship Specialty Start Date End Date Emilia Alcaraz MD [address] [place] [address] PCP - General Family Medicine 08/06/18
--- OUTSIDE RECORDS SUMMARY | 2024-12-02 14:16 | XMS_ITS | Clinical Summary ---
Author Organization [facility] Address [address] [place] [address] Care Team Providers Care Director Of Assessing Name Role Phone Belle Moore MD Primary Care Provider [phone] Social History Tobacco Use Types Packs/Day Years Used Date Smoking Tobacco: Never Assessed Comments Unknown Sex and Gender Information Value Date Recorded Sex Assigned at Not on file Legal Sex Female 3:07 PM NET DEVELOPER PROGRAMMER Gender Identity Not on file Sexual Orientation Not on file Plan of Treatment Health Maintenance Due Date Last Done Comments DTAP/TDAP/TD VACCINES (1 - Tdap) 2006 HEPATITIS B VACCINES (1 of 3 - 19+ 3-dose series) 2006 PAP SMEAR 2008 CERVICAL CANCER SCREENING 2017 HPV/Cotest 2017 PAP SMEAR 2017 INFLUENZA VACCINE (#1) 2024 HPV VACCINES Aged Out No longer eligi ble based on patient's age to complete this topic PNEUMOCOCCAL VACCINE 0-49 YEARS Aged Out No longer eligible based on patient's age to complete this topic Insurance [employer] CHO[employer] Care Teams Director Of Assessing Relationship Specialty Start Date End Date Belle Moore MD PCP - General Family Practice 10/29/15
--- OUTSIDE RECORDS SUMMARY | 2024-12-02 14:16 | XMS_ITS | Referral Summary ---
Author Organization 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 Right : Ear Roberto Craniomaxillofacial [id number] 05/18/2023 [id number] / / [id number] Insurance [facility] Care Teams Is/It Project Manager Relationship Specialty Start Date End Date Emilia Alcaraz MD [address] [place] [address] PCP - General Family Medicine 08/06/18
[2024-12-02 14:18] LABS: Add Urine Microscopic? YES; Appearance Urine Cloudy (Clear); Bacteria Urine None Seen /hpf; Bilirubin Urine Negative (Negative); Blood Urine Negative (Negative); Color Urine Yellow (Yellow); Glucose Urine UA Negative (Negative); Ketones Urine Negative (Negative); Leukocyte Esterase Ur Negative LEU/UL (Negative); Nitrate Urine Negative (Negative); Non Pathogenic Casts 0-2; Protein Urine Negative (Negative); RBC Urine 0-2 /hpf (0-2); Specific Grav Ur 1.023 (1.001-1.035); Squamous Epithelial Cell Urine None Seen /hpf (Few); WBC Urine 0-5 /hpf (0-3)
== END 2024-12-02 12:39 | disposition home or self-care (01) ==
LOC: ANHOBOP 12:39
PROVIDERS: Visit Provider Obstetrics & Gynecology
DX: R39.9 Unspecified symptoms and signs involving the genitourinary system (principal)
CPT/HCPCS: 81001; 87086

== ENCOUNTER 2024-12-16 13:07 | Outpatient (CLI) | payer OTHER, SELFPAY ==
[2024-12-16 13:52] LABS: Add Urine Microscopic? YES; Appearance Urine Cloudy (Clear); Bacteria Urine 2+ /hpf; Bilirubin Urine Negative (Negative); Blood Urine Trace (Negative); Color Urine Dark Yellow (Yellow); Glucose Urine UA Negative (Negative); Ketones Urine Trace mg/dL (Negative); Leukocyte Esterase Ur 1+ LEU/UL (Negative); Mucus Urine Present /lpf; Need Manual Microscopic Reviewed; Nitrate Urine Negative (Negative); Protein Urine Trace mg/dL (Negative); Specific Grav Ur 1.027 (1.001-1.035); Squamous Epithelial Cell Urine Few /hpf (Few); Urobilinogen Urine 0.2 mg/dL (<2.0); WBC Urine 21-50 /hpf (0-3); pH Urine 5.5 (5.0-9.0)
--- OUTSIDE RECORDS SUMMARY | 2024-12-16 14:58 | XMS_ITS | Clinical Summary ---
Author Organization [facility] Address [address] [facility] [place] [address] Care Team Providers Care Automatic Toe Laster Name Role Phone Lilliana Tate MD Unavailable [phone] Louise Nguyen RN Unavailable Cortez Guy MD Unavailable [phone] Belle Moore MD Primary Care Provider [phone] Source Comments [facility],non-owned Affiliates and Associated Physician Practices is amultiple site organization consisting of ambulatory clinics and hospital sitesin [place], [place], [place] and [place]. This disclosure is being madepursuant to the Care Everywhere program and may not contain all information available regarding this patient. Last updated 18.[facility] Allergies No known active allergies Medications * Be aware that medications may not be up to date on this document. Alwaysverify current medications with the patient. Medication Sig Dispensed Refills Start Date End Date Status CJL-TSK-DB-FISH OIL PO Take 1 Tab by mouth [...] 01/06/2017 02/24/2017 Overview (01/27/2017): 01/27/2017: MIGUEL ANGEL=24.8cm, GUB=7582v, 5#, 52%ile. 01/04/17: MIGUEL ANGEL=26cm. Repeat ultrasound in 2 weeks for EFW & MIGUEL ANGEL. VVT=0852n, 3#12oz, 64%ile Antepartum anemia in second trimester 12/05/2016 02/24/2017 Overview (01/25/2017): 01/15/17: Hgb = 12. Continue iron. 12/02/16: Hgb=9.8. Needs to start on iron. Tachycardia 12/01/2016 01/25/2017 echogenic intracardiac focus on ultrasound 10/25/2016 02/24/2017 High risk , antepartum 08/31/2016 02/24/2017 Overview (02/14/2017): 02/14/2017: GBS neg B+/I/-/-/-/- Flu shot already. Hyponatremia 07/31/2015 07/31/2015 Hypokalemia 07/31/2015 08/01/2015 Assessment & Plan (07/31/2015 11:53 AM GLASS MOLD REPAIRER): Low today. -Replete today with 40 IV K Assessment & Plan (07/31/2015 8:27 AM GLASS MOLD REPAIRER): Low today. -Replete today with 40 IV K Abdominal pain, RUQ (right upper quadrant) 06/24/2015 09/28/2016 Assessment & Plan (08/01/2015 12:26 PM GLASS MOLD REPAIRER): Tolerated clears last night. GI evaluated this [...] Zofran Assessment & Plan (07/31/2015 9:08 AM GLASS MOLD REPAIRER): Since March 2015, comes and goes, worse [...] Additional history exists COVID-19 VACCINE ( - season) 2024 DEPRESSION SCREENING 09/11/2024 INFLUENZA VACCINE (Season Ended) 2025 06/17/2016, 06/18/2015 DTAP/TDAP/TD VACCINES (2 - Td or Tdap) [...] Comments OBSTETRIC PANEL Routine 08/03/2016 3:17 PM GLASS MOLD REPAIRER examination or test, positive result PAP LB RFLX HPV ASCU Routine 08/02/2016 4:01 PM GLASS MOLD REPAIRER Well woman exam with routine gynecological exam from Last 3 Months or Most Recently Relevant to Health Maintenance Results * (ABNORMAL) OBSTETRIC PANEL (08/03/2016 3:17 PM GLASS MOLD REPAIRER) Hepatitis B Virus Surface Antigen Negative Negative [...] BLOOD SPECIMEN / Unknown 08/03/2016 3:17 PM GLASS MOLD REPAIRER 08/03/2016 Narrative Resulting Agency Comment [facility] [address] [facility] [id number] Lilliana Tate MD LAB - CHEMISTRY ARVIND LONG [facility] ACCOUNT BILL [address] [place] [address] * PAP SMEAR LB RFLX HPV ASCU (PO REF LAB) (08/02/2016 4:01 PM GLASS MOLD REPAIRER) Diagnosis [facility] ACCOUNT BILL Comment:NEGATIVE FOR INTRAEP [...] ENTIRE ENDOCERVIX / Unknown 08/02/2016 4:01 PM GLASS MOLD REPAIRER 08/02/2016 Narrative [facility] ACCOUNT BILL - 08/05/2016 5:08 PM GLASS MOLD REPAIRER Source.............Cervix;Endocervix LMP / Prev Treat...ZZC=[id number] Other.............. No. of containers..01 CYTYC Thin Prep Vial Resulting Agency Comment [facility] [address] [place] [address] Arron Valdes [phone] Lilliana Tate MD LAB - PATHOLOGY/CYTO LOGY ORDERABLES [facility] ACCOUNT BILL [address] [place] [address] from Last 3 Months or Most Recently [...] 1:13 PM 11/29/2016 5:59 PM Care Teams Automatic Toe Laster Relationship Specialty [place] [address] [place] [address] [phone] PCP - General 11/21/19 Lilliana Tate MD [address] [place] [address] Green Chain Operator Obstetrics and Gynecology 09/28/11 Louise Nguyen, RN Cadd Instructor 07/31/15 Cortez Guy MD Vascular Surgery 12/23/16
--- OUTSIDE RECORDS SUMMARY | 2024-12-16 14:58 | XMS_ITS | Clinical Summary ---
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 Gender Identity Not on file Sexual Orientation [...] 5 season) 2024 09/18/2020, 08/29/2020 Influenza Vaccine (Season Ended) 2025 07/03/2018, 06/17/2016, 06/18/2015 DTaP/Tdap/Td Vaccine (2 - Td or Tdap) 01/04/2027 01/04/2017 HPV Vaccines Aged Out No longer eligi ble based on patient's age to complete this topic Pneumococcal vaccine <65 Aged Out No longer eligible based on patient's age to complete this topic Medical Devices Implanted Type Area Sales Performance Analyst Device Identifier Shelf Expiration Date Model / Serial / Lot [place] Craniomaxillofacial [id number] Directinject Cement 5cc Bone Henderson - [id number] Implanted:Qty: 1 on 12/20/2021 by Morales East MD at [facility] Right : Ear Roberto Craniomaxillofacial [id number] 05/18/2023 [id number] / / [id number] Insurance [facility] Care Teams Supervisor Abattoir Relationship Specialty Start Date End Date Emilia Alcaraz MD [address] [place] [address] PCP - General Family Medicine 08/06/18
--- OUTSIDE RECORDS SUMMARY | 2024-12-16 14:58 | XMS_ITS | Referral Summary ---
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 H[facility]/PPO Address: [address] [address] [facility] HMO/PPO Address: [place] [address] Care Teams Inverter And Clipper Relationship Specialty Start Date End Date Emilia Alcaraz MD [address] [place] [address] PCP - General Family Medicine 08/06/18
--- OUTSIDE RECORDS SUMMARY | 2024-12-16 14:58 | XMS_ITS | Clinical Summary ---
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 Gender Identity Not on file Sexual Orientation Not on file Plan of Treatment Health Maintenance Due Date Last Done Comments DTAP/TDAP/TD VACCINES (1 - Tdap) 2006 HEPATITIS B VACCINES (1 of 3 - 19+ 3-dose series) 2006 HPV/Cotest (21-29) 2008 PAP SMEAR 2008 CERVICAL CANCER SCREENING 2017 HPV/Cotest (30-65) 2017 PAP SMEAR 2017 INFLUENZA VACCINE (#1) 2024 HPV VACCINES Aged Out No longer eligi ble based on patient's age to complete this topic PNEUMOCOCCAL VACCINE 0-49 YEARS Aged Out No longer eligible based on patient's age to complete this topic Insurance EXCLUSIVE CHOICE Care Teams Fish Hatchery Manager Relationship Specialty Start Date End Date Belle Moore MD PCP - General Family Practice 10/29/15
== END 2024-12-16 13:08 | disposition home or self-care (01) ==
LOC: ANHOBOP 13:09
PROVIDERS: Visit Provider Obstetrics & Gynecology
DX: R35.0 Frequency of micturition (principal)
CPT/HCPCS: 81001; 87086

== ENCOUNTER 2025-05-02 07:58 | Outpatient (NON) | payer OTHER, SELFPAY ==
--- OUTSIDE RECORDS SUMMARY | 2025-05-02 08:03 | XMS_ITS | Clinical Summary ---
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 Gender Identity Not on file Sexual Orientation [...] 10:15 AM CDT Height 167.6 cm (5' 6) 12/14/2021 10:15 AM CDT Body Mass Index 35.51 12/14/2021 10:15 AM CDT Plan of Treatment Health Maintenance Due Date Last Done Comments Cervical Cancer Screening 1987 Depression Screening 1987 Hepatitis C Screening 1987 Varicella Vaccines (1 of 2 - 13+ 2-dose series) 2000 Hepatitis B Screening 2005 Regular Well Visit/Exam 18-64 2005 HPV Vaccines (1 - 3-dose SCD M series) 2014 Covid-19 Vaccine (2023-2 5 season) 2024 09/18/2020, 08/29/2020 Influenza Vaccine (#1) 2025 8, 06/17/2016, 06/18/2015 DTaP/Tdap/Td Vaccine (2 - Td or Tdap) 01/04/2027 01/04/2017 Pneumococcal vaccine <65 Aged Out No longer eligible based on patient's age to complete this topic Medical Devices Implanted Type Area Communications Planner Device Identifier Shelf Expiration Date Model / Serial / Lot [place] Craniomaxillofacial [id number] Directinject Cement 5cc Bone Henderson - [id number] Implanted:Qty: 1 on 12/20/2021 by Morales East MD at [facility] Right : Ear [place] Craniomaxillofacial [id number] 05/18/2023 [id number] / / [id number] Insurance [facility]PP[facility] Address: [address] [address] [place] [address] [facility] H[facility]/PPO Address: [address] [address] [place] [address] Care Teams Appliquer Zigzag Relationship Specialty Start Date End Date Emilia Alcaraz MD [address] [place] [address] PCP - General Family Medicine 08/06/18
--- OUTSIDE RECORDS SUMMARY | 2025-05-02 08:03 | XMS_ITS | Clinical Summary ---
Author Organization [facility] Address [address] [place] [address] Care Team Providers Care Asset Protection Agent Name Role Phone Belle Moore MD Primary Care Provider [phone] Social History Tobacco Use Types Packs/Day Years Used Date Smoking Tobacco: Never Assessed Comments Unknown Sex and Gender Information Value Date Recorded Sex Assigned at Not on file Legal Sex Female 3:07 PM CRITICAL CARE RN Gender Identity Not on file Sexual Orientation Not on file Plan of Treatment Health Maintenance Due Date Last Done Comments HPV VACCINES (1 - 3-dose series) 2002 DTAP/TDAP/TD VACCINES (1 - Tdap) 2006 HEPATITIS B VACCINES (1 of 3 - 19+ 3-dose series) 04/11 HPV/Cotest (21-29) 2008 CERVICAL CANCER SCREENING 2017 HPV/Cotest (30-65) 2017 PAP SMEAR 2017 INFLUENZA VACCINE (#1) 2025 Insurance EX[employer]IVE CHOICE Care Teams Asset Protection Agent Relationship Specialty Start Date End Date Belle Moore MD PCP - General Family Practice 10/29/15
[2025-05-02 08:50] LABS: Hematocrit 39.0 % (37.0-47.0); Hemoglobin 13.0 g/dL (12.0-15.0); Immature Granulocyte Percent A 0.5 % (0-0.5); Lymphocytes Absolute Auto 2.95 K/mm3 (0.9-3.2); Mean Corpuscular HGB Conc 33.3 g/dl (32-36); Mean Corpuscular Hemoglobin 28.4 pg (26-34); Mean Corpuscular Volume 85.2 fl (80-100); Nucleated Red Blood Cells Absolute Auto 0.000 K/mm3 (0.0-0.012); Nucleated Red Blood Cells Perc 0.0 % (0.0-0.2); Platelet Count Result 340 k/mm3 (150-375); Red Blood Count 4.58 M/mm3 (4.2-5.4); White Blood Count 10.8 K/mm3 (4.5-10.0)
[2025-05-02 09:05] LABS: Alanine Aminotransferase 17 U/L (6-35); Albumin Level 4.3 g/dL (3.5-5.1); Alkaline Phosphatase 104 U/L (38-126); Anion Gap 7 mmol/L (4-12); Aspartate Amino Transferase 26 U/L (14-36); Bilirubin,Total 0.6 mg/dL (0.2-1.3); Blood Urea Nitrogen 12 mg/dL (7-17); Calcium 8.9 mg/dL (8.4-10.2); Carbon Dioxide 25 mmol/L (22-30); Chloride 107 mmol/L (98-107); Cholesterol 158 mg/dL (0-200); Estimated Glomerular Filt Rate > 60; Glucose 92 mg/dL (65-110); HDL Direct 45 mg/dL; Potassium 3.9 mmol/L (3.4-5.0); Sodium 139 mmol/L (137-145); Total Protein 8.0 g/dL (6.3-8.2); Triglycerides 89 mg/dL (<150)
[2025-05-02 09:41] LABS: Thyroid Stimulating Hormone 1.940 uIU/mL (0.465-4.680)
== END 2025-05-02 07:59 | disposition home or self-care (01) ==
LOC: ANHOBOP 08:01
PROVIDERS: PCP Student in an Organized Health Care Education/Training Program; Visit Provider Student in an Organized Health Care Education/Training Program
DX: Z13.0 Encounter for screening for diseases of the blood and blood-forming organs and certain disorders involving the immune mechanism (principal); I10 Essential (primary) hypertension; Z13.220 Encounter for screening for lipoid disorders; Z13.29 Encounter for screening for other suspected endocrine disorder
CPT/HCPCS: 36415; 80053; 80061; 84443; 85025

== ENCOUNTER 2025-08-13 08:35 | Outpatient (CLI) | payer OTHER, SELFPAY ==
--- OUTSIDE RECORDS SUMMARY | 2025-08-13 09:03 | XMS_ITS | Clinical Summary ---
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 Gender Identity Not on file Sexual [...] on file Medical Devices Implanted Type Area Process Safety Management Engineer Device Identifier Shelf Expiration Date Model / Serial / Lot [place] Craniomaxillofacial [id number] Directinject Cement 5cc Bone Henderson - [id number] Implanted:Qty: 1 on 12/20/2021 by Morales East MD at [facility] Right : Ear [place] Craniomaxillofacial [id number] 05/18/2023 [id number] / / [id number] Insurance [facility] HMO/PPO Address: [address] [place] [address] [facility] HMO/PPO Address: [address] [place] [address] Care Teams Policy Service Coordinator Relationship Specialty Start Date End Date Emilia Alcaraz MD [address] [place] [address] PCP - General Family Medicine 08/06/18
--- OUTSIDE RECORDS SUMMARY | 2025-08-13 09:03 | XMS_ITS | Clinical Summary ---
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
--- OUTSIDE RECORDS SUMMARY | 2025-08-13 09:03 | XMS_ITS | Clinical Summary ---
Author Organization [facility] Address [address] [address] Care Team Providers Care Power System Engineer Name Role Phone Lilliana Tate MD Unavailable [phone] Louise Nguyen RN Unavailable Cortez Guy MD Unavailable [phone] Belle Moore MD Primary Care Provider [phone] [facility],non-owned Affiliates and Associated Physician Practices is amultiple site organization consisting of ambulatory clinics and hospital sitesin [place], [place], [place] and [place]. This disclosure is being madepursuant to the Care Everywhere program and may not contain all information available regarding this patient. Last updated 18.[facility] Allergies No known active allergies Medications * Be aware that medications may not be up to date on this document. Alwaysverify current medications with the patient. WCE-BMW-IL-FIS H OIL PO Take 1 Tab by mouth once daily Active Syringe, Disposable, 3 ML MISC Use 1 Each 2 times daily 20 Each 7 Active Additional Information Patient not taking.Reported on 06/28/2017 Needle, Disp, 31G X /16 MISC Use 1 Each 2 times daily 20 Each 7 Active Additional Information Patient not taking.Reported on 06/28/2017 enoxaparin (LOVENOX) injectionIndic ations:Deep Vein Thrombosis of Lower Extremity Inject 90 mg subcutaneously every 12 hours Reasons: Deep Vein Thrombosis of Lower Extremity 60 mL 6 7 Active Additional Information Patient not taking.Reported on 06/28/2017 B-D 3CC LUER-MECHE SYR 26GX5/8 26G X 5/8 3 ML MISC USE BID 0 7 Active enoxaparin (LOVENOX) injection 10 7 Active Active Problems Problem Noted Date Diagnosed [...] 01/06/2017 02/24/2017 Overview (01/27/2017): 01/27/2017: MIGUEL ANGEL=24.8cm, LHA=9338y, 5#, 52%ile. 01/04/17: MIGUEL ANGEL=26cm. Repeat ultrasound in 2 weeks for EFW & MIGUEL ANGEL. ESD=9230w, 3#12oz, 64%ile Antepartum anemia in second trimester 12/05/2016 02/24/2017 Overview (01/25/2017): 01/15/17: Hgb = 12. Continue iron. 12/02/16: Hgb=9.8. Needs to start on iron. Tachycardia 12/01/2016 01/25/2017 echogenic intracardiac focus on ultrasound 10/25/2016 02/24/2017 High risk , antepartum 08/31/2016 02/24/2017 Overview (02/14/2017): 02/14/2017: GBS neg B+/I/-/-/-/- Flu shot already. Hyponatremia 07/31/2015 07/31/2015 Hypokalemia 07/31/2015 08/01/2015 Assessment & Plan (07/31/2015 11:53 AM LABORER VINEYARD): Low today. -Replete today with 40 IV K Assessment & Plan (07/31/2015 8:27 AM LABORER VINEYARD): Low today. -Replete today with 40 IV K Abdominal pain, RUQ (right upper quadrant) 06/24/2015 09/28/2016 Assessment & Plan (08/01/2015 12:26 PM LABORER VINEYARD): Tolerated clears last night. GI evaluated this [...] Zofran Assessment & Plan (07/31/2015 9:08 AM LABORER VINEYARD): Since March 2015, comes and goes, worse with fatty meals. Now radiating to epigastric and L flank. Lipase is elevated. Also on estrogen OCP, could cause pancreatitis. 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 Not on file Not on file Last Filed Vital Signs [...] 10:02 AM CDT Height 167.6 cm (5' 6) 06/28/2017 10:02 AM CDT Body Mass Index 30.34 06/28/2017 10:02 AM CDT Plan of Treatment Health Maintenance Due Date Last Done Comments HEPATITIS C SCREENING 04/18/2005 HEPATITIS B VACCINE (1 of 3 - 19+ 3-dose series) 2006 HPV VACCINE (1 - 3-dose SCDM series) 2014 PAP with HPV 2017 Cervical Cancer Screening 08/02/2019 PAP SMEAR 08/02/2019 08/02/2016, 01/09, 01/22/2013, Additional history exists DEPRESSION SCREENING 09/11/2024 COVID-19 VACCINE ( - season) 2025 INFLUENZA VACCINE (#1) 2025 06/17/2016, 2014 DTAP/TDAP/TD VACCINES (2 - Td or Tdap) [...] Comments OBSTETRIC PANEL Routine 08/03/2016 3:17 PM LABORER VINEYARD examination or test, positive result PAP LB RFLX HPV ASCU Routine 08/02/2016 4:01 PM LABORER VINEYARD Well woman exam with routine gynecological exam from Last 3 Months or Most Recently Relevant to Health Maintenance Results * (ABNORMAL) OBSTETRIC PANEL (08/03/2016 3:17 PM LABORER VINEYARD) Hepatitis B Virus Surface Antigen Negative Negative [...] BLOOD SPECIMEN / Unknown 08/03/2016 3:17 PM LABORER VINEYARD 08/03/2016 Narrative Resulting Agency Comment [facility] [address] [facility] [id number] Lilliana Tate MD LAB - CHEMISTRY ORDERABLES F inal Result [facility] ACCOUNT BILL [address] [place] [address] * PAP SMEAR LB RFLX HPV ASCU (PO REF LAB) (08/02/2016 4:01 PM LABORER VINEYARD) Diagnosis [facility] ACCOUNT BILL Comment:NEGATIVE FOR INTRAEP [...] ENTIRE ENDOCERVIX / Unknown 08/02/2016 4:01 PM LABORER VINEYARD 08/02/2016 Narrative [facility] ACCOUNT BILL - 08/05/2016 5:08 PM LABORER VINEYARD Source.............Cervix;Endocervix LMP / Prev Treat...KVC=[id number] Other.............. No. of containers..01 CYTYC Thin Prep Vial Resulting Agency Comment [facility] [address] [place] [id number] Lilliana Tate MD LAB - PATHOLOGY/CYTOLOGY ORD ERABLES Final Result [facility] ACCOUNT BILL [address] [place] [address] from Last 3 Months or Most Recently Relevant to Health Maintenance Insurance Advance Directives * Full Code (Latest Code [...] 1:13 PM 11/29/2016 5:59 PM Care Teams Power System Engineer Relationship Specialty [place] [address] [address] [place] [id number] PCP - General 11/21/19 Lilliana Tate MD Senior Litigation Paralegal Obstetrics and Gynecology 09/28/11 Louise Nguyen, JUAN PABLO Surface To Air Weapons Officer 07/31/15 Cortez Guy MD Vascular Surgery 12/23/16
[2025-08-13 11:09] LABS: Add Urine Microscopic? YES; Appearance Urine Clear (Clear); Glucose Urine UA Negative (Negative); Leukocyte Esterase Ur Negative LEU/UL (Negative); Nitrate Urine Negative (Negative); Non Pathogenic Casts 0-2; Specific Grav Ur 1.022 (1.001-1.035)
== END 2025-08-13 08:36 | disposition home or self-care (01) ==
LOC: ANHOBOP 08:38 → ANHLAB 18:09
PROVIDERS: PCP Family Medicine; Visit Provider Obstetrics & Gynecology
DX: O13.9 Gestational [pregnancy-induced] hypertension without significant proteinuria, unspecified trimester (principal); Z3A.00 Weeks of gestation of pregnancy not specified
CPT/HCPCS: 81001

== ENCOUNTER 2025-08-18 08:36 | Outpatient (CLI) | payer OTHER, SELFPAY ==
[2025-08-18 09:01] LABS: Add Urine Microscopic? NO; Appearance Urine Clear (Clear); Glucose Urine UA Negative (Negative); Leukocyte Esterase Ur Negative LEU/UL (Negative); Nitrate Urine Negative (Negative); Specific Grav Ur 1.023 (1.001-1.035)
== END 2025-08-18 08:37 | disposition home or self-care (01) ==
LOC: ANHOBOP 08:37
PROVIDERS: PCP Family Medicine; Visit Provider Obstetrics & Gynecology
DX: Z34.90 Encounter for supervision of normal pregnancy, unspecified, unspecified trimester (principal); Z3A.00 Weeks of gestation of pregnancy not specified
CPT/HCPCS: 81003; 87086